=== PATIENT | male | born 1945 | race Caucasian/White ===

== ENCOUNTER → 2017-12-31 08:38 | Outpatient (CLI) | payer MEDICARE, OTHER, SELFPAY ==
[2017-12-31 09:47] LABS: Anion Gap 4.9 mmol/L (3-11); BUN 15 mg/dL (7-18); CO2 27.1 mmol/L (21.0-32.0); CREATININE 0.83 mg/dL (0.70-1.30); Calcium 8.8 mg/dL (8.5-10.1); Chloride 106 mmol/L (98-107); Glucose 95 mg/dL (70-100); Potassium 4.4 mmol/L (3.5-5.1); Sodium 138 mmol/L (136-145)
== END ==
PROVIDERS: PCP Family Medicine; Visit Provider Family Medicine
DX: E55.9 Vitamin D deficiency, unspecified (principal); I10 Essential (primary) hypertension
CPT/HCPCS: 36415; 80048; 82306

== ENCOUNTER 2018-07-09 09:32 | Outpatient (CLI) | payer MEDICARE, OTHER, SELFPAY ==
--- NOTE | 2018-07-09 09:28 | DI.RAD_ITS ---
SYMPTOMS/DIAGNOSIS: F/U LT HAND PAIN LEFT HAND: There are no prior comparison exams. There is no evidence of fracture or dislocation. Degenerative changes are seen in the interphalangeal joints of the fingers as well as at the radial carpal joint. No bony erosions are seen. The bones appear normally mineralized. IMPRESSION: Degenerative changes greatest of the interphalangeal joints of the fingers.
== END 2018-07-09 09:52 ==
PROVIDERS: PCP Family Medicine; Referring Provider Family Medicine; Visit Provider Orthopaedic Surgery
DX: M79.642 Pain in left hand (principal); M25.732 Osteophyte, left wrist
CPT/HCPCS: 99211; 99213; 73130

== ENCOUNTER → 2018-09-06 10:29 | Outpatient (BNVA) | payer MEDICARE, OTHER, SELFPAY | PROVIDERS: PCP Family Medicine; Referring Provider Family Medicine; Visit Provider Physical Therapy Assistant | DX: Z01.818 Encounter for other preprocedural examination (principal); I10 Essential (primary) hypertension; M25.742 Osteophyte, left hand; Z79.82 Long term (current) use of aspirin ==

== ENCOUNTER 2018-09-11 09:00 | Day surgery (SDC) | payer MEDICARE, OTHER, SELFPAY ==
[2018-09-11 09:15] VITALS: BP 127/69; PULSE 58; RESP 16; TEMP 36.4; O2SAT 96
[2018-09-11] MEDS: Lactated Ringers 1,000 ML 80 ML IV (09:41)
[2018-09-11] MEDS: ceFAZolin 2 GM/50 ML BAG IVPB (11:20)
--- NOTE | 2018-09-11 11:45 | BONE_PTH ---
PATIENT: Kristina Figueroa LOC: [facility] U#:[id number] AGE/SX: 72/M ROOM: RE09/11/[address]: Burak Quinones MD : [id number] BED: DIS: 09/11/2018 SPEC #: [id number] RECD: 09/11/18 17:19 STATUS: GAMAL REQ #: [id number] DANA: 09/11/18 11:[address]: Burak Quinones DEPT: Surgical Specimen RECD BY: Shanta Bhatt ENTERED: 09/11/18 17:20 SP TYPE: Bone OTHR DR: Sammy Almonte MD Tissues: 1 - BONE BX/CURRETTE NOT PATH FRACTURE Procedures: GROSS AND MICRO LEVEL 4 DECALCIFICATION Comments: [id number]
--- NOTE | 2018-09-11 12:01 | DI.RAD_ITS ---
SYMPTOMS/DIAGNOSIS: METACARPAL BOSS, LEFT LEFT WRIST IN THE OR: Fluoroscopy Time: 0.13 sec, 2 images, 0.1386 mGy Fluorosopcy was utilized by Dr. Quinones in the Operating Room. Please refer to the procedure report for complete details.
[2018-09-11] MEDS: Bupivacaine 0.5% Pres-Free 30 ML VIAL (12:08)
[2018-09-11 12:18] VITALS: BP 124/75; PULSE 57; RESP 12; TEMP 36.6; O2SAT 94
[2018-09-11 12:23] VITALS: BP 142/89; PULSE 56; RESP 15; TEMP 36.7; O2SAT 98
[2018-09-11 12:28] VITALS: BP 147/82; PULSE 55; RESP 16; TEMP 36.7; O2SAT 98
--- NOTE | 2018-09-11 12:32 | W.PM.DSUDISC ---
Discharge Plan Disposition Patient Disposition: HOME Condition: Improving Discharge Details Attending Provider: Burak Quinones Primary Care Provider: Sammy Almonte Home Meds and New Rx's Prescriptions: No Action magnesium gluconate 27 mg magnesium (500 mg) tablet 27 mg PO BID RF: 0 sulfamethoxazole-trimethoprim [Bactrim DS] 800-160 mg tablet 1 tab PO Q12H Qty: 30 RF: 0 oxygen-air delivery systems device .ROUTE .MEDSUPPLY Qty: 1 RF: 0 aspirin [Aspirin Low-Strength] 81 MG tablet,chewable 81 mg PO DAILY RF: 0 multivitamin 1 EACH capsule 1 ea PO DAILY RF: 0 Probiotic 1 EACH capsule 1 cap PO DAILY PRN RF: 0 maría extract 250 MG capsule 250 mg PO DAILY RF: 0 fluticasone propionate 16 GM spray,suspension 2 spr NS DAILY Qty: 1 RF: 2 tamsulosin 0.4 MG capsule 1 - 2 cap PO HS Qty: 180 RF: 3 cholecalciferol (vitamin D3) [Vitamin D3] 2,000 UNIT capsule 2,000 unit PO BID RF: 0 lisinopril 20 MG tablet 0.5 tab PO DAILY Qty: 90 RF: 4 tadalafil [Cialis] 20 MG tablet 20 mg PO DAILY Qty: 16 RF: 4 acetaminophen [Mapap Extra Strength] 500 MG tablet 2 tab PO PRN RF: 0 ibuprofen 200 MG tablet 600 mg PO DAILY PRNRF: 0 Discharge Instructions Additional Instructions: Keep your left hand elevated above heart level as much as possible for the next 48 hours. You may use your fingers as comfort allow. You may loosen the wrist splint and/or underlying alistair bandage if they feel too tight. Expect some bloody drainage on the underlying gauze bandages. For showering tomorrow, use a plastic bag with a rubber band about the upper forearm to keep the bandages dry. On 09/13/18, you may remove all of your bandages and get your wound wet in the shower with soap and water. Gently pat the stitches dry and cover them with gauze or an extra-large bandaid. Only use your wrist splint for any discomfort. Do not do any heavy labor until the stitches are removed. Take you regular medications as before. Take tylenol, aleve or ibuprofen for milder pain. Tylenol may be taken at the same time as ibuprofen or at the same time as aleve as they are metabolized differently and are not cross toxic. Take norco (hydrocodone 5/325mg) 1-2 every 4-6 hours for more serious pain. [facility] regulations limit the amount of norco to 18 tablets. Follow-up with Dr. Quinones in 10-12 days for stitch removal. Stand Alone Forms: DSU Post op Instructions, Shanna Porras (DSU) Equipment/Supplies: Brace Activity:: Elevate Remove Dressings/Wound Care:: 48 hours Shower/Bathe:: 48 hours Diet:: As Tolerated Discharge Orders Discharge Orders: Discharge Order (Routine); Ordered 09/11/18 Ordered By: Burak Quinones
--- NOTE | 2018-09-11 12:49 | W.PM.DSUDISC ---
Discharge Plan Disposition Patient Disposition: HOME Condition: Improving Discharge Details Attending Provider: Burak Quinones Primary Care Provider: Sammy Almonte Home Meds and New Rx's Prescriptions: New hydrocodone-acetaminophen [Bighorn] 5-325 mg tablet 1 tab PO Q4H Qty: 18 RF: 0 No Action magnesium gluconate 27 mg magnesium (500 mg) tablet 27 mg PO BID RF: 0 sulfamethoxazole-trimethoprim [Bactrim DS] 800-160 mg tablet 1 tab PO Q12H Qty: 30 RF: 0 oxygen-air delivery systems device .ROUTE .MEDSUPPLY Qty: 1 RF: 0 aspirin [Aspirin Low-Strength] 81 MG tablet,chewable 81 mg PO DAILY RF: 0 multivitamin 1 EACH capsule 1 ea PO DAILY RF: 0 Probiotic 1 EACH capsule 1 cap PO DAILY PRN RF: 0 maría extract 250 MG capsule 250 mg PO DAILY RF: 0 fluticasone propionate 16 GM spray,suspension 2 spr NS DAILY Qty: 1 RF: 2 tamsulosin 0.4 MG capsule 1 - 2 cap PO HS Qty: 180 RF: 3 cholecalciferol (vitamin D3) [Vitamin D3] 2,000 UNIT capsule 2,000 unit PO BID RF: 0 lisinopril 20 MG tablet 0.5 tab PO DAILY Qty: 90 RF: 4 tadalafil [Cialis] 20 MG tablet 20 mg PO DAILY Qty: 16 RF: 4 acetaminophen [Mapap Extra Strength] 500 MG tablet 2 tab PO PRN RF: 0 ibuprofen 200 MG tablet 600 mg PO DAILY PRNRF: 0 Discharge Instructions Additional Instructions: Keep your left hand elevated above heart level as much as possible for the next 48 hours. You may use your fingers as comfort allow. You may loosen the wrist splint and/or underlying alistair bandage if they feel too tight. Expect some bloody drainage on the underlying gauze bandages. For showering tomorrow, use a plastic bag with a rubber band about the upper forearm to keep the bandages dry. On 09/13/18, you may remove all of your bandages and get your wound wet in the shower with soap and water. Gently pat the stitches dry and cover them with gauze or an extra-large bandaid. Only use your wrist splint for any discomfort. Do not do any heavy labor until the stitches are removed. Take you regular medications as before. Take tylenol, aleve or ibuprofen for milder pain. Tylenol may be taken at the same time as ibuprofen or at the same time as aleve as they are metabolized differently and are not cross toxic. Take norco (hydrocodone 5/325mg) 1-2 every 4-6 hours for more serious pain. [facility] regulations limit the amount of norco to 18 tablets. Follow-up with Dr. Quinones in 10-12 days for stitch removal. Stand Alone Forms: DSU Post op Instructions, Shanna Porras (DSU) Equipment/Supplies: Brace Activity:: Elevate Remove Dressings/Wound Care:: 48 hours Shower/Bathe:: 48 hours Diet:: As Tolerated Discharge Orders Discharge Orders: Discharge Order (Routine); Ordered 09/11/18 Ordered By: Burak Quinones Discharge Data Discharge Date/Time-TO BE ENTERED AT DEPARTURE: 09/11/18 14:00 Discharge Comment: DC'D HOME WITH , STABLE.
[2018-09-11 13:35] VITALS: BP 133/79; PULSE 59; RESP 16; TEMP 36; O2SAT 97
--- NOTE | 2018-09-11 14:14 | ROE_ITS ---
REPORT OF OPERATIVE PROCEDURE DATE OF PROCEDURE September 11, 2018 PREOPERATIVE DIAGNOSIS Painful metacarpal exostosis (metacarpal boss), middle finger left hand. POSTOPERATIVE DIAGNOSES Painful metacarpal exostosis (metacarpal boss), middle finger left hand with possible small associate d ganglion cyst. PROCEDURES Excision of metacarpal exostosis and biopsy of exostosis. SURGEON Burak Quinones M.D. [employer] Tech. ANESTHETIC General via LMA by Narendra Rae C.R.N.A. PREP ChloraPrep. INDICATIONS Mr. Figueroa has been bothered by painful exostosis over the dorsum of his nondominant left hand. It does not typically bother him while working, but when at rest or when sitting in one position, he gets rene n. He had a very prominent bone spur over the base of the middle finger metacarpal, which was quite t ilya. X-ray revealed what appeared to be an exostosis either associated with metacarpal carpal arthr itis or some other etiology. Because of discomfort, I recommended excision. I reviewed his radiographs with him. I saw him today in the Day Surgery holding area, and reviewed e planned procedure. He understood and wished to proceed. His left hand was marked with a surgical sk in marker. PROCEDURE DESCRIPTION The patient was taken to the Operating Suite; he underwent induction of general anesthesia via LMA. H e received 2 grams of Ancef a prophylactic antibiotic. A pneumatic tourniquet was applied to the left proximal brachium. The left upper extremity was prepped with ChloraPrep. Sterile drapes were applied . Timeout was instituted, verifying the patient's planned procedure, and his medical history. The lef t arm was then lifted above his head for 2 minutes to exsanguinate it and the tourniquet was inflated to 320 mmHg. A transverse incision was made over the metacarpal boss, which was easily visible and palpable. I marguerite cted to use the C-arm image intensifier to verify complete excision of the boss. After making the tra nsverse incision, the extensor tendon was retracted in a radial direction. The soft tissue overlying the boss were incised. There had been some cystic ganglion cyst-type fluid and synovial fluid, which lead me to decide to biopsy the soft tissues in addition to the bone. After the bone was exposed, a Mathew osteotome was used to resect them. This was further trimmed back u sing a small rongeur. A rasp was then used to file the base of the middle finger metacarpal fully. Th e mini C-arm was brought into position and lateral and oblique films show complete removal of the mas s. Final check showed the dorsal surface of the carpal metacarpal junction to be smooth. I used a sma ll amount of sterile bone wax to minimize postoperative hematoma. The tourniquet was deflated. Hemost asis was under control. Subcutaneous tissues were closed with #3-0 Vicryl. The skin was closed with t wo sutures of #4-0 Ethilon in a horizontal mattress fashion. Marcaine 0.5% without epinephrine was pl aced dorsally in the subcutaneous tissues for postoperative analgesia. The wound was dressed with Xer oform gauze, 4x4s, 3-inch confirming gauze bandage, a 3-inch Chase wrap and a commercial wrist immobili zer. The patient was taken to the Recovery Room in satisfactory condition tolerating the procedure we ll.
--- NOTE | 2018-09-17 07:00 | PDOC.DSDIS_ITS ---
Discharge Plan Disposition Patient Disposition: HOME Condition: Improving Discharge Details Attending Provider: Burak Quinones Primary Care Provider: Sammy Almonte Home Meds and New Rx's Prescriptions: New hydrocodone-acetaminophen [Orgas] 5-325 mg tablet 1 tab PO Q4H Qty: 18 RF: 0 No Action magnesium gluconate 27 mg magnesium (500 mg) tablet 27 mg PO BID RF: 0 sulfamethoxazole-trimethoprim [Bactrim DS] 800-160 mg tablet 1 tab PO Q12H Qty: 30 RF: 0 oxygen-air delivery systems device .ROUTE .MEDSUPPLY Qty: 1 RF: 0 aspirin [Aspirin Low-Strength] 81 MG tablet,chewable 81 mg PO DAILY RF: 0 multivitamin 1 EACH capsule 1 ea PO DAILY RF: 0 Probiotic 1 EACH capsule 1 cap PO DAILY PRN RF: 0 maría extract 250 MG capsule 250 mg PO DAILY RF: 0 fluticasone propionate 16 GM spray,suspension 2 spr NS DAILY Qty: 1 RF: 2 tamsulosin 0.4 MG capsule 1 - 2 cap PO HS Qty: 180 RF: 3 cholecalciferol (vitamin D3) [Vitamin D3] 2,000 UNIT capsule 2,000 unit PO BID RF: 0 lisinopril 20 MG tablet 0.5 tab PO DAILY Qty: 90 RF: 4 tadalafil [Cialis] 20 MG tablet 20 mg PO DAILY Qty: 16 RF: 4 acetaminophen [Mapap Extra Strength] 500 MG tablet 2 tab PO PRN RF: 0 ibuprofen 200 MG tablet 600 mg PO DAILY PRNRF: 0 Discharge Instructions Additional Instructions: Keep your left hand elevated above heart level as much as possible for the next 48 hours. You may use your fingers as comfort allow. You may loosen the wrist splint and/or underlying alistair bandage if they feel too tight. Expect some bloody drainage on the underlying gauze bandages. For showering tomorrow, use a plastic bag with a rubber band about the upper forearm to keep the bandages dry. On 09/13/18, you may remove all of your bandages and get your wound wet in the shower with soap and water. Gently pat the stitches dry and cover them wit h gauze or an extra-large bandaid. Only use your wrist splint for any discomfort. Do not do any heavy labor until the stitches are removed. Take you regular medications as before. Take tylenol, aleve or ibuprofen for milder pain. Tylenol may be taken at the same time as ibuprofen or at the same time as aleve as they are metabolized differently and are not cross toxic. Take norco (hydrocodone 5/325mg) 1-2 every 4-6 hours for more serious pain. [facility] regulations limit the amount of norco to 18 tablets. Follow-up with Dr. Quinones in 10-12 days for stitch removal. Stand Alone Forms: DSU Post op Instructions, Shanna Porras (DSU) Equipment/Supplies: Brace Activity:: Elevate Remove Dressings/Wound Care:: 48 hours Shower/Bathe:: 48 hours Diet:: As Tolerated Discharge Orders Discharge Orders: Discharge Order (Routine); Ordered 09/11/18 Ordered By: Burak Quinones Discharge Data Discharge Date/Time-TO BE ENTERED AT DEPARTURE: 09/11/18 14:00 Discharge Comment: DC'D HOME WITH , STABLE.
== END 2018-09-11 14:00 | disposition home or self-care (01) ==
PROVIDERS: PCP Family Medicine; Visit Provider Orthopaedic Surgery
PROC: (CPT 26230; principal; 2018-09-11 10:00)
DX: M89.9 Disorder of bone, unspecified (principal); I10 Essential (primary) hypertension; G47.33 Obstructive sleep apnea (adult) (pediatric); M79.642 Pain in left hand
CPT/HCPCS: 26230; 88305; 73100; 88304; 88311; J0690; J1885; J2405; J3010; L3908

== ENCOUNTER → 2018-09-24 11:40 | Outpatient (BNVA) | payer MEDICARE, OTHER, SELFPAY | PROVIDERS: PCP Family Medicine; Referring Provider Family Medicine; Visit Provider Orthopaedic Surgery | DX: Z47.89 Encounter for other orthopedic aftercare (principal); M25.749 Osteophyte, unspecified hand ==

== ENCOUNTER 2019-01-10 07:56 | Outpatient (CLI) | payer MEDICARE, OTHER, SELFPAY ==
[2019-01-10 10:50] LABS: HCT 44.9 % (40.0-50.0); HGB 15.2 g/dL (13.5-17.5); Mean Corp. HGB Concentration 33.9 g/dL (32.0-36.0); Mean Corpuscular Hemoglobin 30.9 pg (27.0-33.0); Mean Corpuscular Volume 91.3 fL (80-95); Platelet Count 232 x1000/uL (130-400); RBC 4.92 m/cumm (4.50-6.00); RBC Distribution Width 13.2 % (11.8-14.1); White Blood Cell Count 5.26 k/cumm (4.4-10.8)
[2019-01-10 11:04] LABS: Anion Gap 8.4 mmol/L (3-11); BUN 12 mg/dL (7-18); CO2 27.6 mmol/L (21.0-32.0); CREATININE 0.94 mg/dL (0.70-1.30); Chloride 106 mmol/L (98-107); Glucose 97 mg/dL (70-100); Potassium 4.7 mmol/L (3.5-5.1); Sodium 142 mmol/L (136-145)
== END 2019-01-10 08:16 ==
PROVIDERS: PCP Family Medicine; Visit Provider Family Medicine
DX: I10 Essential (primary) hypertension (principal)
CPT/HCPCS: 36415; 80048; 85027

== ENCOUNTER 2019-04-23 11:11 | Outpatient (CLI) | payer MEDICARE, OTHER, SELFPAY ==
--- NOTE | 2019-04-23 13:07 | DI.RAD_ITS ---
EXAM: XR CHEST 2V PA LATERAL INDICATION: cough/rales right, sinus pressure, J34.89. COMPARISON: CHEST ONE VIEW IN RAD DEPT from 06/10/2014 TECHNIQUE: 2D digital imaging was performed. FINDINGS: The heart size is normal. The aorta is tortuous. There is minimal linear scarring at the left lung base. No infiltrate, effusion or pulmonary edema is seen. IMPRESSION: No acute abnormality.
== END 2019-04-23 11:31 ==
PROVIDERS: PCP Family Medicine; Visit Provider Internal Medicine
DX: R09.89 Other specified symptoms and signs involving the circulatory and respiratory systems (principal); R05 Cough; J34.89 Other specified disorders of nose and nasal sinuses
CPT/HCPCS: 71046

== ENCOUNTER 2019-06-12 11:45 | Outpatient (CLI) | payer MEDICARE, OTHER, SELFPAY ==
[2019-06-12 13:12] LABS: Absolute Basophil Count 0.02 k/cumm (0.0-0.2); Absolute Eosinophil Count 0.07 k/cumm (0.0-0.7); Absolute Lymphocyte Count 1.47 k/cumm (1.2-3.4); Absolute Monocyte Count 0.48 k/cumm (0.11-0.7); Absolute Neutrophil Count 2.61 k/cumm (1.2-6.7); Basophils % 0.4; Eosinophils % 1.5; HCT 44.5 % (40.0-50.0); Lymphocytes % 31.6; Mean Corp. HGB Concentration 33.7 g/dL (32.0-36.0); Mean Corpuscular Hemoglobin 30.6 pg (27.0-33.0); Mean Corpuscular Volume 90.8 fL (80-95); Mean Platelet Volume 11.1 fL (8.0-11.0); Monocytes % 10.3; Neutrophils % 56.2; Platelet Count 236 x1000/uL (130-400); RBC Distribution Width 13.1 % (11.8-14.1); White Blood Cell Count 4.65 k/cumm (4.4-10.8)
[2019-06-12 13:45] LABS: ALT 35 U/L (16-63); AST 18 U/L (15-37); Alkaline Phosphatase 59 U/L (46-116); Anion Gap 9.6 mmol/L (3-11); BUN 12 mg/dL (7-18); Bilirubin, Total 0.6 mg/dL (0.2-1.0); CO2 28.4 mmol/L (21.0-32.0); CREATININE 0.78 mg/dL (0.70-1.30); Calcium 8.9 mg/dL (8.5-10.1); Chloride 105 mmol/L (98-107); Glucose 92 mg/dL (74-106); Potassium 4.3 mmol/L (3.5-5.1); Sodium 143 mmol/L (136-145)
== END 2019-06-12 12:05 ==
PROVIDERS: PCP Family Medicine
DX: R50.9 Fever, unspecified (principal); R10.2 Pelvic and perineal pain
CPT/HCPCS: 36415; 80053; 85025

== ENCOUNTER 2019-06-13 02:04 | Outpatient (CLI) | payer MEDICARE, OTHER, SELFPAY ==
--- NOTE | 2019-06-13 13:03 | DI.US_ITS ---
EXAM: US RENAL CLINICAL HISTORY: RECURRENT PELVIC PAIN AND PRESSURE, NEGATIVE R10.2 PELVIC PAIN,, H/O URINARY CALCU LI, R50.9 FEVER TECHNIQUE: Renal ultrasound was performed according to the usual protocol. COMPARISON: RENAL ULTRASOUND from 05/05/2013 FINDINGS: There is no evidence of hydronephrosis or nephrolithiasis. There is a 33 millimeter in greatest diam eter right renal pelvic cyst. Urinary bladder shows pre and postvoid volume measurements 98 cc and 38 cc, respectively. Ureteral j ets noted bilaterally. Prostatic volume is estimated at 35 cc. IMPRESSION: Residual urinary bladder volume 38 cc. No other significant abnormality seen.
== END 2019-06-13 02:24 ==
PROVIDERS: PCP Family Medicine
DX: R10.2 Pelvic and perineal pain (principal); R50.9 Fever, unspecified; R39.198 Other difficulties with micturition
CPT/HCPCS: 76770

== ENCOUNTER 2020-01-16 00:09 | Outpatient (CLI) | payer MEDICARE, OTHER, SELFPAY ==
[2020-01-16 12:56] LABS: Anion Gap 7.5 mmol/L (3-11); BUN 25 mg/dL (7-18); CO2 27.5 mmol/L (21.0-32.0); CREATININE 0.86 mg/dL (0.70-1.30); Calcium 9.2 mg/dL (8.5-10.1); Chloride 105 mmol/L (98-107); Glucose 88 mg/dL (74-106); Potassium 4.4 mmol/L (3.5-5.1); Sodium 140 mmol/L (136-145)
== END 2020-01-16 00:29 ==
PROVIDERS: PCP Nurse Practitioner; Visit Provider Family Medicine
DX: I10 Essential (primary) hypertension (principal)
CPT/HCPCS: 36415; 80048

== ENCOUNTER 2020-04-07 03:28 | Outpatient (CLI) | payer MEDICARE, OTHER, SELFPAY ==
[2020-04-07 12:19] LABS: Abs Immature Grans 0.11 10^3/uL (0.0-0.06); Absolute Monocyte Count 0.75 10^3/uL (0.1-0.8); Basophils % 0.3; Eosinophils % 0.8; HCT 37.8 % (40.0-50.0); HGB 12.2 g/dL (13.5-17.5); Immature Grans % 0.7; Lymphocytes % 7.8; MCH 30.2 pg (27.0-33.0); MCHC 32.3 % (32.0-36.0); MCV 93.6 fL (80-95); MPV 10.5 fL (8.0-11.0); Monocytes % 4.7; Neutrophils % 85.7; Nucleated RBC 0 %; Platelet Count 348 10^3/uL (130-400); RBC 4.04 10^6/uL (4.36-5.78); RDW 12.6 % (11.8-14.1); RDW-SD 43.7 fL
[2020-04-07 12:25] LABS: Absolute Basophil Count 0.05 10^3/uL (0.0-0.2); Absolute Eosinophil Count 0.13 10^3/uL (0.0-0.7); Absolute Lymphocyte Count 1.25 10^3/uL (1.2-3.4); Absolute Neutrophil Count 13.71 10^3/uL (1.2-6.7); Anion Gap 8.2 mmol/L (3-11); BUN 15 mg/dL (7-18); CO2 25.8 mmol/L (21.0-32.0); Calcium 8.5 mg/dL (8.5-10.1); Chloride 104 mmol/L (98-107); Glucose 103 mg/dL (74-106); Potassium 4.5 mmol/L (3.5-5.1); Sodium 138 mmol/L (136-145)
[2020-04-08 10:26] LABS: Lyme Ab w Rflx to Lyme Confirm Positive (Negative)
[2020-04-09 19:29] LABS: Anaplasma phagocytophilum Negative (Negative); B. miyamotoi PCR Negative (Negative); Babesia divergens/MO-1 Negative (Negative); Babesia duncani Negative (Negative); Babesia microti Negative (Negative); Ehrlichia chaffeensis Negative (Negative); Ehrlichia ewingii/canis Negative (Negative); Ehrlichia muris eauclairensis Negative (Negative)
[2020-04-14 15:02] LABS: IgG Band(s) p45; IgG Immunoblot Negative (Negative); IgM Band(s) p41; IgM Immunoblot Positive (Negative)
== END 2020-04-07 03:48 ==
PROVIDERS: PCP Nurse Practitioner; Visit Provider Nurse Practitioner
DX: R53.82 Chronic fatigue, unspecified (principal); R21 Rash and other nonspecific skin eruption; R50.9 Fever, unspecified
CPT/HCPCS: 36415; 80048; 86617; 87798; 85025; 86618

== ENCOUNTER 2020-05-06 02:48 | Outpatient (CLI) | payer MEDICARE, OTHER, SELFPAY ==
[2020-05-11 12:49] LABS: 1,25-Dihydroxyvitamin D 76 pg/mL (18-64)
== END 2020-05-06 03:08 ==
PROVIDERS: PCP Nurse Practitioner; Visit Provider Nurse Practitioner
DX: E55.9 Vitamin D deficiency, unspecified (principal)
CPT/HCPCS: 36415; 82652

== ENCOUNTER → 2020-07-06 10:49 | Outpatient (BNVA) | payer MEDICARE, OTHER, SELFPAY | PROVIDERS: PCP Nurse Practitioner; Referring Provider Nurse Practitioner; Visit Provider Psychiatry & Neurology Neurology | DX: R29.2 Abnormal reflex (principal); G25.2 Other specified forms of tremor; R41.3 Other amnesia; I10 Essential (primary) hypertension | CPT/HCPCS: 99215; G2212 ==

== ENCOUNTER 2020-07-19 00:54 | Outpatient (CLI) | payer MEDICARE, OTHER, SELFPAY ==
--- NOTE | 2020-07-19 06:45 | DI.MRI_ITS ---
EXAM: MR CERVICAL SPINE WO CLINICAL HISTORY: Bilateral babinski reflexes,r29.2 TECHNIQUE: Multiplanar multisequence MRI of the cervical spine was performed without intravenous con trast. COMPARISON: There are no plain films of the cervical spine available at the time of this MRI interpr etation FINDINGS: CERVICOMEDULLARY JUNCTION: Intact with no evidence of cerebellar tonsillar ectopia. No obvious abnor mality of the odontoid process. No evidence of Chiari 1 malformation. CERVICAL SPINAL CORD: Mild increased signal at C4-5 level where there is severe spinal canal stenosis (see below) OSSEOUS:There are no cervical fractures evident. No significant osseous lesions in the cervical vert ebrae. INDIVIDUAL LEVELS: C2-3: There is a central subligamentous disc bulge. This effaces the thecal sac but not the actual s osmel cord. There is no abnormal signal in the cord at this level. Central canal dimensions are low er normal. No foraminal stenosis seen. Mild degenerative changes in the facet joints. C3-4: At this level there is lateral right disc-osteophyte complex which results in some impingement on right side of cervical cord at this level and some right-sided foraminal narrowing. No significan t left-sided findings at this level.Mild facet degenerative changes. C4-5: Advanced disc space narrowing. Diffuse annular bulging and posterior bony ridging result in sev ere central spinal canal stenosis at this level. The AP diameter of canal at this level is 4-5 bessy meters. There is also significant narrowing of the exiting neural foramina bilaterally due to the di sc height loss and degenerative facet joint changes. C5-6: Advanced disc space narrowing. There is a posterolateral right disc protrusion which extends p osteriorly 4-5 millimeters and is approximately 2 centimeters wide. This results in significant impi ngement of the cord at this level with severe spinal canal stenosis also evident at this level. Mode rate narrowing of both exiting neural foramen are also noted. C6-7: Moderate decreased disc height. Posterior slightly right of center disc protrusion which exten ds posteriorly 3 millimeters and is approximately 8 millimeters wide. Contacts the cord but central canal dimensions are lower normal. There is moderate bilateral foraminal stenosis this level. No ob vious signal abnormality in the cord seen at this level. Moderate facet arthropathy. C7-T1: No disc herniation nor central canal stenosis. No facet arthropathy.No foraminal stenosis. IMPRESSION: 1. Multilevel chronic degenerative disc disease as described above. 2. There is severe spinal canal stenosis at both C4-5 and C5-6 levels. Also multilevel foraminal nilton nosis. 3. Multilevel facet arthropathy. DATA REPOSITORY:
== END 2020-07-19 01:14 ==
PROVIDERS: PCP Nurse Practitioner; Visit Provider Psychiatry & Neurology Neurology
DX: M48.02 Spinal stenosis, cervical region; M47.812 Spondylosis without myelopathy or radiculopathy, cervical region; R29.2 Abnormal reflex
CPT/HCPCS: 72141

== ENCOUNTER → 2020-08-24 09:27 | Outpatient (BNVA) | payer MEDICARE, OTHER, SELFPAY | PROVIDERS: PCP Nurse Practitioner; Referring Provider Nurse Practitioner; Visit Provider Psychiatry & Neurology Neurology | DX: G25.2 Other specified forms of tremor (principal); R29.2 Abnormal reflex; R41.3 Other amnesia; G95.9 Disease of spinal cord, unspecified; I10 Essential (primary) hypertension | CPT/HCPCS: 99214 ==

== ENCOUNTER → 2020-11-15 09:05 | Outpatient (BNVA) | payer MEDICARE, OTHER, SELFPAY | PROVIDERS: PCP Nurse Practitioner; Referring Provider Nurse Practitioner; Visit Provider Psychiatry & Neurology Neurology | DX: G25.2 Other specified forms of tremor (principal); R29.2 Abnormal reflex; R41.3 Other amnesia; G95.9 Disease of spinal cord, unspecified; I10 Essential (primary) hypertension | CPT/HCPCS: 99214 ==

== ENCOUNTER 2021-01-21 01:13 | Outpatient (CLI) | payer MEDICARE, OTHER, SELFPAY ==
[2021-01-21 12:38] LABS: CREATININE 0.8 mg/dL (0.70-1.30); Potassium 4.6 mmol/L (3.5-5.1)
== END 2021-01-21 01:14 | disposition home or self-care (01) ==
LOC: LOS 01:13
PROVIDERS: PCP Nurse Practitioner; Visit Provider Nurse Practitioner
DX: I10 Essential (primary) hypertension (principal); E78.01 Familial hypercholesterolemia
CPT/HCPCS: 36415; 82565; 84132

== ENCOUNTER → 2021-05-16 09:16 | Outpatient (BNVA) | payer MEDICARE, OTHER, SELFPAY | PROVIDERS: PCP Nurse Practitioner; Visit Provider Psychiatry & Neurology Neurology | DX: G25.2 Other specified forms of tremor (principal); R29.2 Abnormal reflex; R41.3 Other amnesia; G95.9 Disease of spinal cord, unspecified; I10 Essential (primary) hypertension | CPT/HCPCS: 99214 ==

== ENCOUNTER 2021-07-20 21:34 | Emergency (ER) | payer MEDICARE, OTHER, SELFPAY ==
[2021-07-20 21:39] VITALS: BP 189/97; PULSE 82; RESP 18; TEMP 36.5; O2SAT 97
[2021-07-20 21:44] VITALS: RESP 18
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
[2021-07-20 22:12] VITALS: BP 189/97; PULSE 82; RESP 18; TEMP 36.5; O2SAT 97
== END 2021-07-20 22:14 | disposition home or self-care (01) ==
PROVIDERS: Emergency Provider Emergency Medicine; PCP Nurse Practitioner
DX: T75.89XA Other specified effects of external causes, initial encounter (principal); X02.0XXA Exposure to flames in controlled fire in building or structure, initial encounter; Z99.89 Dependence on other enabling machines and devices
CPT/HCPCS: 99281; 99282

== ENCOUNTER → 2021-11-30 09:19 | Outpatient (BNVA) | payer MEDICARE, OTHER, SELFPAY | PROVIDERS: PCP Nurse Practitioner; Referring Provider Nurse Practitioner; Visit Provider Psychiatry & Neurology Neurology | DX: G25.2 Other specified forms of tremor (principal); R29.2 Abnormal reflex; R41.3 Other amnesia; G95.9 Disease of spinal cord, unspecified | CPT/HCPCS: 99214 ==

== ENCOUNTER 2022-04-10 04:22 | Outpatient (CLI) | payer MEDICARE, OTHER, SELFPAY ==
[2022-04-10 12:41] LABS: Abs Immature Grans 0.01 10^3/uL (0.0-0.06); Absolute Basophil Count 0.04 10^3/uL (0.0-0.2); Absolute Eosinophil Count 0.19 10^3/uL (0.0-0.7); Absolute Lymphocyte Count 1.95 10^3/uL (1.2-3.4); Absolute Monocyte Count 0.62 10^3/uL (0.1-0.8); Absolute Neutrophil Count 3.21 10^3/uL (1.2-6.7); Basophils % 0.7; Eosinophils % 3.2; Immature Grans % 0.2; Lymphocytes % 32.4; MCH 30.4 pg (27.0-33.0); MCHC 33.3 % (32.0-36.0); MCV 91 fL (80-95); MPV 11.2 fL (8.0-11.0); Monocytes % 10.3; Neutrophils % 53.2; Platelet Count 207 10^3/uL (130-400); RBC 4.94 10^6/uL (4.36-5.78); RDW 13.3 % (11.8-14.1); RDW-SD 44.7 fL; WBC 6.02 10^3/uL (4.4-10.8)
[2022-04-10 12:51] LABS: ALT 37 U/L (16-63); AST 20 U/L (15-37); Albumin 4.1 g/dL (3.4-5.0); Alkaline Phosphatase 51 U/L (46-116); Anion Gap 7.7 mmol/L (3-11); BUN 16 mg/dL (7-18); Bilirubin, Total 0.6 mg/dL (0.2-1.0); CO2 28.3 mmol/L (21.0-32.0); CREATININE 0.9 mg/dL (0.70-1.30); Calcium 9.2 mg/dL (8.5-10.1); Calculated LDL 126 mg/dL (<100); Chloride 105 mmol/L (98-107); Cholesterol 204 mg/dL (<200); Estimated GFR 89.07 (mL/min/1.73m2); Glucose 102 mg/dL (74-106); HDL Cholesterol 65 mg/dL (40-60); Potassium 4.2 mmol/L (3.5-5.1); Sodium 141 mmol/L (136-145); TSH (W/Ref FT4) 1.45 uIU/mL (0.36-3.74); Total Protein 7.4 g/dL (6.4-8.2); Triglyceride 68 mg/dL (<150)
== END 2022-04-10 04:23 | disposition home or self-care (01) ==
LOC: LOS 04:22
PROVIDERS: PCP Nurse Practitioner Family; Visit Provider Nurse Practitioner Family
DX: E78.5 Hyperlipidemia, unspecified (principal); F32.9 Major depressive disorder, single episode, unspecified; F41.9 Anxiety disorder, unspecified; G25.81 Restless legs syndrome; I10 Essential (primary) hypertension; I83.93 Asymptomatic varicose veins of bilateral lower extremities; L84 Corns and callosities; N13.8 Other obstructive and reflux uropathy; N40.1 Benign prostatic hyperplasia with lower urinary tract symptoms; R41.3 Other amnesia; E78.01 Familial hypercholesterolemia; Z12.5 Encounter for screening for malignant neoplasm of prostate
CPT/HCPCS: 36415; 80053; 80061; 84153; 84443; 85025

== ENCOUNTER 2022-05-12 02:26 | Outpatient (CLI) | payer MEDICARE, SELFPAY | END 2022-05-12 02:27 | disposition home or self-care (01) | LOC: LOS 02:26 | PROVIDERS: PCP Nurse Practitioner Family; Visit Provider Nurse Practitioner Family | DX: R97.20 Elevated prostate specific antigen [PSA] (principal) | CPT/HCPCS: 36415; 84153 ==

== ENCOUNTER → 2022-05-29 07:58 | Outpatient (BNVA) | payer MEDICARE, SELFPAY | PROVIDERS: PCP Nurse Practitioner Family; Referring Provider Nurse Practitioner Family; Visit Provider Urology | DX: R97.20 Elevated prostate specific antigen [PSA] (principal); N40.1 Benign prostatic hyperplasia with lower urinary tract symptoms; N13.8 Other obstructive and reflux uropathy | CPT/HCPCS: 51798; 81003; 99214 ==

== ENCOUNTER 2022-11-28 15:47 | Outpatient (REF) | payer MEDICARE, SELFPAY | END 2022-11-28 15:48 | disposition home or self-care (01) | LOC: LBN 15:47 | PROVIDERS: PCP Nurse Practitioner Family; Visit Provider Physician Assistant | DX: N39.0 Urinary tract infection, site not specified (principal) | CPT/HCPCS: 87086 ==

== ENCOUNTER 2022-12-11 02:49 | Outpatient (CLI) | payer MEDICARE, SELFPAY ==
[2022-12-11 22:46] LABS: PSA, Diagnostic 8.7 ng/mL (<=6.5)
== END 2022-12-11 02:50 | disposition home or self-care (01) ==
LOC: LOS 02:49
PROVIDERS: PCP Nurse Practitioner Family; Visit Provider Urology
DX: R97.20 Elevated prostate specific antigen [PSA] (principal)
CPT/HCPCS: 36415; 84153

== ENCOUNTER → 2022-12-15 13:57 | Outpatient (BNVA) | payer MEDICARE, SELFPAY | PROVIDERS: PCP Nurse Practitioner Family; Referring Provider Nurse Practitioner Family; Visit Provider Urology | DX: N40.1 Benign prostatic hyperplasia with lower urinary tract symptoms (principal); N13.8 Other obstructive and reflux uropathy; I10 Essential (primary) hypertension | CPT/HCPCS: 99214 ==

== ENCOUNTER 2023-02-02 08:04 | Day surgery (SDC) | payer MEDICARE, SELFPAY ==
[2023-02-02 08:40] VITALS: BP 162/88; PULSE 57; RESP 16; TEMP 36.6; O2SAT 98
[2023-02-02] MEDS: Tropicam./Phenyleph. (1/2.5%) 5 ML BTL OS ×3 (08:48→09:00)
--- NOTE | 2023-02-02 08:57 | W.ANESPRE ---
General Info Date of Service Date Performed: 02/02/23 Height: 6 ft 1 in Weight: 100.2 kg Body Mass Index (BMI): 29.1 Surgical Procedure: Operation Date: 02/02/23 09:55 Proposed Procedure Side Surgeon p Cataract Extraction with IOL Implant Left Nile Bella MD Meds Allergies and Home Medications Allergies Allergy/AdvReac Type Severity Reaction Status Date / Time bupropion AdvReac Intermediate INSOMNIA Verified 02/02/23 08:35 ciprofloxacin HCl AdvReac Intermediate Verified 02/02/23 08:35 [From Cipro] amphetamine AdvReac Unknown Verified 02/02/23 08:35 dextroamphetamine AdvReac Unknown Verified 02/02/23 08:35 Home Medication Medication Instructions Recorded Lactobacillus acidophilus 10 1 cap PO DAILY PRN 05/01/13 billion cell capsule (Probiotic) acetaminophen 500 mg tablet (Mapap 2 tab PO PRN 02/13/14 Extra Strength) ibuprofen 200 mg tablet 600 mg PO DAILY PRN 08/13/17 magnesium gluconate 27 mg 27 mg PO BID 08/28/18 magnesium (500 mg) tablet oxygen-air delivery systems ##1 01/06/20 ascorbate calcium (vitamin C) 500 500 mg PO DAILY PRN 08/24/20 mg tablet maría (Zingiber officinalis) 250 250 mg PO DAILY PRN 11/15/20 mg capsule (maría extract) cetirizine 10 mg capsule (All Day 10 mg PO DAILY PRN 02/08/21 Allergy (cetirizine)) fluticasone propionate 50 2 spray intranasal DAILY PRN #1 inh 11/30/21 mcg/actuation nasal spray,suspension clotrimazole 1 % topical cream 1 applic topical BID #45 grams 04/06/22 tamsulosin 0.4 mg capsule 0.4 - 0.8 mg PO HS #180 tab-caps 04/06/22 sennosides 8.6 mg capsule (senna) 17.2 mg PO DAILY PRN constipation 06/26/22 #90 caps lisinopril 10 mg tablet 10 mg PO BID #180 tabs 07/13/22 ciclopirox 8 % topical solution 1 applic topical DAILY 3 months 12/06/22 #6.6 mL ketoconazole 2 % topical cream 1 applic topical DAILY 3 months 12/06/22 #60 grams tadalafil 5 mg tablet (Cialis) 5 mg PO DAILY urination #90 tabs 12/15/22 Current Visit Medications: Current Medications Generic Name Dose Route Start Last Admin Trade Name Go PRN Reason Stop Dose Admin Acetaminophen 1,000 mg 02/02/23 06:00 Acetaminophen 500 Mg Tab PO 03/04/23 05:59 Q4H PRN PRN Balanced Salt Solution 500 ml 02/02/23 06:00 Balanced Salt Soln.-Plus 500 Ml Bag OP 03/04/23 05:59 DIRECTED SHARRON Miscellaneous Medication 0 ml 02/02/23 06:00 Prednisolone 1%, Moxifloxacin 0.5%, Nepafenac 0.1% 5ml Btl OS 03/04/23 05:59 DIRECTED SHARRON Miscellaneous Medication 0 ml 02/02/23 06:00 02/02/23 08:55 Tropicam./Phenyleph. (1/2.5%) 5 Ml Btl OS 03/04/23 05:59 1 drp DIRECTED SHARRON Administration Tetracaine HCl 0 ml 02/02/23 06:00 Tetracaine 0.5% 4 Ml Btl OS 03/04/23 05:59 DIRECTED SHARRON PFSH Active Problems Active Problems: Problem Status Onset Code Cortical age-related cataract, left eye H25.012 Nuclear age-related cataract, left eye H25.12 Neuropathy G62.9 Toenail fungus B35.1 Callus L84 Hammertoe of left foot M20.42 Pain in toe M79.676 Elevated PSA, less than 10 ng/ml R97.20 Corns and callosities L84 Nail dystrophy L60.3 Allergies T78.40XA Trigger finger, left M65.30 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 N40.1, N13.8 Hearing loss H91.90 Low back pain M54.5 Varicose veins of both lower extremities I83.93 Restless legs syndrome G25.81 Erectile dysfunction N52.9 Hypertension I10 Hyperlipidemia E78.5 Depression F32.9 Anxiety F41.9 Memory loss R41.3 Intention tremor G25.2 Sensorineural hearing loss, bilateral 02/22/15 H90.3 Onychomycosis B35.1 Obstructive sleep apnea syndrome G47.33 Medical History Medical History Aftercare for healing traumatic fracture of upper leg (06/16/14) Anemia following surgery (06/16/14) Chest pain (04/05/04) History of reduction of closed fracture Hx of renal calculi Lyme borreliosis treated 2020 SHANIQUE on CPAP Rales Subtrochanteric fracture of femur (06/16/14) a. on the left Surgical History Surgical History Colonoscopy - MAC 09/06/10 FRACTURE 06/2014-LEFT FEMUR H/O surgical procedure a. bilateral inguinal hernia repair b. umbilical hernia repair c. bilateral carpal tunnel release d. trigger thumb surgery e. s/p subtrochanteric fx repair with Gamma nail 06/11/14 Open Carpal Tunnel release 03/19;05/20 Repair of inguinal hernia 1989-RIGHT 2006 LEFT 09/2011 ??? Status post carpal tunnel release Status post inguinal hernia repair Status post trigger finger release (02/13/14) Status post vasectomy Trigger Finger release 02/13/14; b/l Vasectomy Tobacco Smoking/Tobacco Use Status: Never Passive smoking exposure: Yes Second hand exposure: Yes Alcohol Alcohol Intake: never Substance Use Substance use: Never Substance use type: does not use Vital Signs and Lab Results Vital Signs Most Recent Vital Signs in EMR: Most Recent Vital Signs Temp Pulse Resp BP Pulse Ox 36.6 C 57 L 16 162/88 H 98 02/02/23 08:40 02/02/23 08:40 02/02/23 08:40 02/02/23 08:40 02/02/23 08:40 Lab Results Blood Type / Crossmatch: No Data to Display Complete Blood Count: No Data to Display Complete Metabolic Panel: No Data to Display Liver Function Panel: No Data to Display Coagulation Panel: No Data to Display Cardiac Panel: No Data to Display Arterial Blood Gas: No Data to Display Venous Blood Gas: No Data to Display Pancreas Panel: No Data to Display Thyroid Panel: No Data to Display Infectious Disease: No Data to Display Blood Cultures: No Data to Display Toxicology Panel: No Data to Display Anesthesia Assessment and Plan Anesthesia History Personal History: No History of Anesthesia Complications Family History: No Family History of Anesthesia Complications Exercise Tolerance Exercise Tolerance: Metabolic Equivalents>4 Cardiac & Pulmonary Exam Cardiac Exam: Normal S1/S2 Heart Sounds Pulmonary Exam: Clear Bilateral Breath Sounds Implantable Cardiac Device Does patient have a Pacemaker or an ICD?: No Airway Exam Known Difficult Airway: No Mallampati Class: 2 Mouth Opening: Normal (> 3cm) Thyromental Distance: Greater than 3 cm Neck Range of Motion: Limited ROM Neck Circumference: Normal Teeth Condition: Normal Dentition ASA Classification ASA Score: ASA 2 Emergency Case?: No NPO Status NPO Status: NPO Clears >2 hours, Solids >8 hours Anesthesia Plan Resuscitation Status: Full Code Anesthesia Technique: MAC Anesthesia Airway Planned: Natural Airway Monitors Used: Standard Monitors Preoperative Comments:: IV placement and sedation as backup, primary local
[2023-02-02 09:34] VITALS: BMI 29.1
[2023-02-02] MEDS: Tetracaine 0.5% 4 ML BTL OS (09:46)
[2023-02-02] MEDS: Balanced Salt Soln.-PLUS 500 ML BAG OP (09:46)
[2023-02-02] MEDS: Lidocaine 1% Pres-Free 5 ML VIAL (09:47)
[2023-02-02] MEDS: Duovisc Viscoelastic System EACH 1 EACH (09:47)
[2023-02-02] MEDS: Phenylephrine/Lidocaine (15/10) MG/ML 1 ML VIAL (09:48)
[2023-02-02] MEDS: Povidone-Iodine Ophth 30 ML BTL (09:49)
[2023-02-02 10:04] VITALS: BP 177/97; PULSE 54; RESP 18; TEMP 36.4; O2SAT 99
--- NOTE | 2023-02-02 10:04 | ROE_ITS ---
Date of service: 02/02/23 Time of Service: 10:05 Operative Note Operative Note DATE OF PROCEDURE: 02/02/23 PRE-OP DIAGNOSIS: Nuclear/cortical cataract, left eye POST-OP DIAGNOSIS: same PROCEDURE: Cataract extraction using phacoemulsification with intraocular lens implant, left eye SURGEON: Nile Bella ANESTHESIA TYPE: Local By Surgeon and MAC Refer to Anesthesia Record PATHOLOGY: none sent COMPLICATIONS: None Patient was transported to: same day Patient's condition: stable Implants: Jed and Jed Tecnis Eyhance [id number] Indications: Progressive decreased vision due to cataract, left eye Procedure Description: CATARACT SURGERY OPERATIVE REPORT PREOPERATIVE DIAGNOSIS: 1. Nuclear/cortical cataract, left eye POSTOPERATIVE DIAGNOSIS: Same OPERATION: 1. Cataract extraction using phacoemulsification with posterior chamber intraocular lens implant, left eye. IOL: IOL Sr Vice President/Model: Jed & Jed Tecnis Eyhance DIB00 IOL Power: + 19.5 diopters IOL Serial Number: [id number] Optic Diameter: 6.0 mm Haptic/Overall Diameter: 13.0 mm PHACO INFO: RigoToolWireon Vision System with OZil and Active Fluidics Cumulative Dispersed Energy (CDE): 6.68 seconds SURGEON: Nile Bella MD, VENKAT ANESTHESIA: Monitored [facility] (MAC), with local sub-tenon's anesthetic infiltration COMPLICATIONS: None SPECIMENS: None INDICATIONS FOR PROCEDURE: The patient is a 77-year-old gentleman with history of diminished visual acuity in his left eye secondary to the development of nuclear/cortical cataract. He is significantly symptomatic that he desires cataract surgery and attempt to improve and maximize his vision. The option of cataract surgery was offered to the patient and he wished to proceed. See office notes for detailed information. PROCEDURE: The correct surgical eye was identified and marked as the left eye and the pupil was dilated in the preoperative area using mydriatics and cycloplegics. The dilated pupil size was 6.0 mm. The patient elected to proceed without oral sedation. The patient was brought to the operating room where cardiopulmonary monitoring was instituted and surgical time-out was performed, confirming the correct operative eye and IOL power. Topical anesthesia was administered and ophthalmic povidone-iodine 5% was instilled into the conjunctival fornices. The efren-ocular area was prepped with Betadine 10% solution and draped in the usual sterile fashion for intraocular surgery, including an aperture drape. A Tegaderm transparent film dressing was cut in half and used to cover the lashes and lid margins. Care was taken to s equester the lashes and lid margins under the Tegaderm dressing. A lid speculum was placed between the lids of the operative eye and the Rigo LuxOR Revalia operating microscope was maneuvered into position. Mica scissors were then used to make a conjunctival buttonhole approximately 6mm posterior to the limbus in the inferonasal quadrant. Blunt dissection was carried out to expose bare sclera, and a blunt-tipped sub-tenon?s anesthesia cannula was introduced and passed posteriorly along the globe where non- preserved plain lidocaine was injected into posterior sub-Tenon?s space. A sideport knife was used to make a paracentesis port. Intraocular phenylephrine/lidocaine was injected into the anterior chamber.. The anterior chamber was filled with viscoelastic. A keratome knife was used to construct a 2-plane near-clear corneal tunnel extending 2.0mm into clear cornea. A flap was raised on the anterior capsule and capsulorhexis forceps were used to complete a continuous curvilinear capsulorhexis of 5.0 mm. Balanced salt solution was then used to perform cortical cleaving hydrodissection and nuclear hydrodelineation until the lens could be freely rotated within the capsular bag. The lens nucleus was then disassembled and removed within the capsular bag and iris plane using phacoemulsification. Residual cortical material was removed using the irrigation/aspiration badillo dpiece. The posterior capsule was carefully polished to remove as much residual lens epithelial cells as safely possible. The capsular bag was then inflated and the anterior chamber deepened with viscoelastic. The lens implant described above was inserted into the capsular bag using the Jed and Jed Simplicity pre-loaded injector. A Kuglen hook was used to dial the IOL into position. Residual viscoelastic was then removed first from posterior to the IOL, then from the anterior chamber using the I/A handpiece. The lens implant was noted to center nicely within the capsular bag. The incisions were stromally hydrated, and the anterior chamber was reformed using BSS. Then 0.5cc of moxifloxacin 1.0mg/ml were injected into the capsular bag and anterior chamber. The incisions were checked with a Weck spear and found to be secure. Several drops of ophthalmic povidone-iodine 5% were then applied to the eye followed by two drops of Imprimis combination prednisolone/moxifloxacin/nepafenac solution. The drapes were removed and a clear plastic protective eye shield was placed over the eye. The patient was then returned to Same Day Surgery in stable condition.
--- NOTE | 2023-02-02 10:04 | W.PM.DSUDISC ---
Date of service: 02/02/23 Time of Service: 10:04 Discharge Plan Disposition Patient Disposition: Home Discharge Details Attending Provider: Nile Bella Primary Care Provider: Clara Olivier Home Meds and New Rx's Prescriptions: No Action magnesium gluconate 27 mg magnesium (500 mg) tablet 27 mg PO BID All Day Allergy (cetirizine) 10 mg capsule 10 mg PO DAILY PRN tamsulosin 0.4 mg capsule 0.4 - 0.8 mg PO HS Qty: 180 4RF clotrimazole 1 % cream 1 applic topical BID Qty: 45 0RF Rx Instructions: Apply to affected areas twice a dayfor 2-4wks senna 8.6 mg capsule 17.2 mg PO DAILY PRN (Reason: constipation) Qty: 90 1RF (DME) oxygen-air delivery systems Device See Rx Instructions .ROUTE .MEDSUPPLY Qty: 1 Rx Instructions: CPAP @ HS As directed ascorbate calcium (vitamin C) 500 mg tablet 500 mg PO DAILY PRN tadalafil [Cialis] 5 mg tablet 5 mg PO DAILY Qty: 90 4RF Hold Instructions: Changed by Provider ciclopirox 8 % solution 1 applic topical DAILY 90 Days Qty: 6.6 0RF ketoconazole 2 % cream 1 applic topical DAILY 90 Days Qty: 60 0RF Probiotic 1 EACH capsule 1 cap PO DAILY PRN maría extract 250 mg capsule 250 mg PO DAILY PRN fluticasone propionate 50 mcg/actuation spray,suspension 2 spray intranasal DAILY PRNQty: 1 lisinopril 10 mg tablet 10 mg PO BID Qty: 180 3RF acetaminophen [Mapap Extra Strength] 500 MG tablet 2 tab PO PRN ibuprofen 200 MG tablet 600 mg PO DAILY PRN Discharge Instructions Stand Alone Forms: Post-op Topical Cataract, Shanna Palaciosey (DSU) Discharge Orders Discharge Orders: Discharge Order (Routine); Ordered 02/02/23 Ordered By: Nile Bella DS: Diagnosis Discharge Diagnosis (1) Cortical age-related cataract, left eye: Status: Resolved (2) Nuclear age-related cataract, left eye: Status: Resolved
--- NOTE | 2023-02-02 10:16 | W.ANESPOSTOP ---
Postoperative Evaluation Date, Time and Location Date Performed: 02/02/23 Time Performed: 10:08 Patient Location: Day Surgery Unit Vital Signs Most Recent Imported Vital Signs: Most Recent Vital Signs Temp Pulse Resp BP Pulse Ox 36.4 C L 54 L 18 177/97 H 99 02/02/23 10:04 02/02/23 10:04 02/02/23 10:04 02/02/23 10:04 02/02/23 10:04 Pain Score Most Recent Pain Score: Most Recent Pain Score Pain Level 0 02/02/23 10:04 Assessment Mental Status: Awake (Alert & Oriented to Patient Baseline) Airway and Respiratory Function: Patent airway with normal (patient baseline) respiratory exam Cardiovascular Function: Hemodynamically Stable Hydration Status: Adequately Hydrated Nausea & Vomiting: No Nausea or Vomiting Pain: Pt. Denies Any Pain Peripheral Nerve Block: Patient did not receive a nerve block
== END 2023-02-02 10:34 | disposition home or self-care (01) ==
LOC: SUR 08:04
PROVIDERS: PCP Nurse Practitioner Family; Visit Provider Ophthalmology
PROC: (CPT 66984; principal; 2023-02-02 09:45)
DX: H25.012 Cortical age-related cataract, left eye (principal); H25.12 Age-related nuclear cataract, left eye; I10 Essential (primary) hypertension
CPT/HCPCS: 66984; V2632

== ENCOUNTER 2023-02-16 10:09 | Day surgery (SDC) | payer MEDICARE, SELFPAY ==
[2023-02-16 11:00] VITALS: BP 148/95; PULSE 58; RESP 16; TEMP 36.5; O2SAT 100
[2023-02-16] MEDS: Tropicam./Phenyleph. (1/2.5%) 5 ML BTL OD ×3 (11:07→11:19)
--- NOTE | 2023-02-16 11:24 | W.ANESPRE ---
General Info Date of Service Date Performed: 02/16/23 Height: 6 ft 1 in Weight: 98.7 kg Body Mass Index (BMI): 28.7 Surgical Procedure: Operation Date: 02/16/23 13:40 Proposed Procedure Side Surgeon p Cataract Extraction with IOL Implant Right Nile Bella MD Meds Allergies and Home Medications Allergies Allergy/AdvReac Type Severity Reaction Status Date / Time bupropion AdvReac Intermediate INSOMNIA Verified 02/16/23 10:58 ciprofloxacin HCl AdvReac Intermediate Verified 02/16/23 10:58 [From Cipro] amphetamine AdvReac Unknown Verified 02/16/23 10:58 dextroamphetamine AdvReac Unknown Verified 02/16/23 10:58 Home Medication Medication Instructions Recorded Lactobacillus acidophilus 10 1 cap PO DAILY PRN 05/01/13 billion cell capsule (Probiotic) acetaminophen 500 mg tablet (Mapap 2 tab PO PRN 02/13/14 Extra Strength) ibuprofen 200 mg tablet 600 mg PO DAILY PRN 08/13/17 magnesium gluconate 27 mg 27 mg PO BID 08/28/18 magnesium (500 mg) tablet oxygen-air delivery systems ##1 01/06/20 ascorbate calcium (vitamin C) 500 500 mg PO DAILY PRN 08/24/20 mg tablet maría (Zingiber officinalis) 250 250 mg PO DAILY PRN 11/15/20 mg capsule (maría extract) cetirizine 10 mg capsule (All Day 10 mg PO DAILY PRN 02/08/21 Allergy (cetirizine)) fluticasone propionate 50 2 spray intranasal DAILY PRN #1 inh 11/30/21 mcg/actuation nasal spray,suspension clotrimazole 1 % topical cream 1 applic topical BID #45 grams 04/06/22 tamsulosin 0.4 mg capsule 0.4 - 0.8 mg (1 - 2 x 0.4 mg) PO 04/06/22 HS #180 tab-caps sennosides 8.6 mg capsule (senna) 17.2 mg (2 x 8.6 mg) PO DAILY PRN 06/26/22 constipation #90 caps lisinopril 10 mg tablet 10 mg PO BID #180 tabs 07/13/22 ciclopirox 8 % topical solution 1 applic topical DAILY 3 months 12/06/22 #6.6 mL ketoconazole 2 % topical cream 1 applic topical DAILY 3 months 12/06/22 #60 grams tadalafil 5 mg tablet (Cialis) 5 mg PO DAILY urination #90 tabs 12/15/22 Current Visit Medications: Current Medications Generic Name Dose Route Start Last Admin Trade Name Freq PRN Reason Stop Dose Admin Acetaminophen 1,000 mg 02/16/23 06:00 Acetaminophen 500 Mg Tab PO 03/18/23 05:59 Q4H PRN PRN Balanced Salt Solution 500 ml 02/16/23 06:00 Balanced Salt Soln.-Plus 500 Ml Bag OP 03/18/23 05:59 DIRECTED [facility] Miscellaneous Medication 0 ml 02/16/23 06:00 Prednisolone 1%, Moxifloxacin 0.5%, Nepafenac 0.1% 5ml Btl OD 03/18/23 05:59 DIRECTED [facility] Miscellaneous Medication 0 ml 02/16/23 06:00 02/16/23 11:19 Tropicam./Phenyleph. (1/2.5%) 5 Ml Btl OD 03/18/23 05:59 1 drp DIRECTED [facility] Administration Tetracaine HCl 0 ml 02/16/23 06:00 Tetracaine 0.5% 4 Ml Btl OD 03/18/23 05:59 DIRECTED [facility] PFSH Active Problems Active Problems: Problem Status Onset Code Tremor of face and hands R25.1 Cortical age-related cataract, right eye H25.011 Nuclear age-related cataract, right eye H25.11 Cortical age-related cataract, left eye H25.012 Nuclear age-related cataract, left eye H25.12 Neuropathy G62.9 Toenail fungus B35.1 Callus L84 Hammertoe of left foot M20.42 Pain in toe M79.676 Elevated PSA, less than 10 ng/ml R97.20 Corns and callosities L84 Nail dystrophy L60.3 Allergies T78.40XA Trigger finger, left M65.30 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 N40.1, N13.8 Hearing loss H91.90 Low back pain M54.5 Varicose veins of both lower extremities I83.93 Restless legs syndrome G25.81 Erectile dysfunction N52.9 Hypertension I10 Hyperlipidemia E78.5 Depression F32.9 Anxiety F41.9 Memory loss R41.3 Intention tremor G25.2 Sensorineural hearing loss, bilateral 02/22/15 H90.3 Onychomycosis B35.1 Obstructive sleep apnea syndrome G47.33 Medical History Medical History Aftercare for healing traumatic fracture of upper leg (06/16/14) Anemia following surgery (06/16/14) Chest pain (04/05/04) History of reduction of closed fracture Hx of renal calculi Lyme borreliosis treated 2020 SHANIQUE on CPAP Rales Subtrochanteric fracture of femur (06/16/14) a. on the left Surgical History Surgical History Colonoscopy - MAC 09/06/10 FRACTURE 06/2014-LEFT FEMUR H/O surgical procedure a. bilateral inguinal hernia repair b. umbilical hernia repair c. bilateral carpal tunnel release d. trigger thumb surgery e. s/p subtrochanteric fx repair with Gamma nail 06/11/14 Open Carpal Tunnel release 03/19;05/20 Repair of inguinal hernia 1989-RIGHT 2006 LEFT 09/2011 ??? Status post carpal tunnel release Status post inguinal hernia repair Status post trigger finger release (02/13/14) Status post vasectomy Trigger Finger release 02/13/14; b/l Vasectomy Tobacco Smoking/Tobacco Use Status: Never Passive smoking exposure: Yes Second hand exposure: Yes Alcohol Alcohol Intake: never Substance Use Substance use: Never Substance use type: does not use Vital Signs and Lab Results Vital Signs Most Recent Vital Signs in EMR: Most Recent Vital Signs Temp Pulse Resp BP Pulse Ox 36.5 C 58 L 16 148/95 H 100 02/16/23 11:00 02/16/23 11:00 02/16/23 11:00 02/16/23 11:00 02/16/23 11:00 Lab Results Blood Type / Crossmatch: No Data to Display Complete Blood Count: No Data to Display Complete Metabolic Panel: No Data to Display Liver Function Panel: No Data to Display Coagulation Panel: No Data to Display Cardiac Panel: No Data to Display Arterial Blood Gas: No Data to Display Venous Blood Gas: No Data to Display Pancreas Panel: No Data to Display Thyroid Panel: No Data to Display Infectious Disease: No Data to Display Blood Cultures: No Data to Display Toxicology Panel: No Data to Display Anesthesia Assessment and Plan Anesthesia History Personal History: No History of Anesthesia Complications Family History: No Family History of Anesthesia Complications Exercise Tolerance Exercise Tolerance: Metabolic Equivalents>4 Pertinent Negatives Pertinent Negatives: No Symptoms of GERD Cardiac & Pulmonary Exam Cardiac Exam: Normal S1/S2 Heart Sounds Pulmonary Exam: Clear Bilateral Breath Sounds Implantable Cardiac Device Does patient have a Pacemaker or an ICD?: No Airway Exam Known Difficult Airway: No Mallampati Class: 2 Mouth Opening: Normal (> 3cm) Thyromental Distance: Greater than 3 cm Neck Range of Motion: Limited ROM Neck Circumference: Normal Teeth Condition: Normal Dentition ASA Classification ASA Score: ASA 2 Emergency Case?: No NPO Status NPO Status: NPO Clears >2 hours, Solids >8 hours Anesthesia Plan Resuscitation Status: Full Code Anesthesia Technique: MAC Anesthesia Airway Planned: Natural Airway Monitors Used: Standard Monitors Preoperative Comments:: From past Anesthetic: IV placement and sedation as backup, primary local 77 yo male for Cataract.
[2023-02-16 11:27] VITALS: BMI 28.7
[2023-02-16] MEDS: Tetracaine 0.5% 4 ML BTL OD (12:10)
[2023-02-16] MEDS: Povidone-Iodine Ophth 30 ML BTL (12:10)
[2023-02-16] MEDS: Phenylephrine/Lidocaine (15/10) MG/ML 1 ML VIAL (12:13)
[2023-02-16] MEDS: Lidocaine 1% Pres-Free 5 ML VIAL (12:13)
[2023-02-16] MEDS: Balanced Salt Soln.-PLUS 500 ML BAG OP (12:13)
[2023-02-16] MEDS: Duovisc Viscoelastic System EACH 1 EACH (12:13)
[2023-02-16 12:31] VITALS: BP 147/103; PULSE 55; RESP 17; TEMP 36.6; O2SAT 98
--- NOTE | 2023-02-16 12:32 | W.PM.DSUDISC ---
Date of service: 02/16/23 Time of Service: 12:32 Discharge Plan Disposition Patient Disposition: Home Discharge Details Attending Provider: Nile Bella Primary Care Provider: Clara Olivier Home Meds and New Rx's Prescriptions: No Action magnesium gluconate 27 mg magnesium (500 mg) tablet 27 mg PO BID All Day Allergy (cetirizine) 10 mg capsule 10 mg PO DAILY PRN tamsulosin 0.4 mg capsule 0.4 - 0.8 mg PO HS Qty: 180 4RF clotrimazole 1 % cream 1 applic topical BID Qty: 45 0RF Rx Instructions: Apply to affected areas twice a dayfor 2-4wks senna 8.6 mg capsule 17.2 mg PO DAILY PRN (Reason: constipation) Qty: 90 1RF (DME) oxygen-air delivery systems Device See Rx Instructions .ROUTE .MEDSUPPLY Qty: 1 Rx Instructions: CPAP @ HS As directed ascorbate calcium (vitamin C) 500 mg tablet 500 mg PO DAILY PRN tadalafil [Cialis] 5 mg tablet 5 mg PO DAILY Qty: 90 4RF Hold Instructions: Changed by Provider ciclopirox 8 % solution 1 applic topical DAILY 90 Days Qty: 6.6 0RF ketoconazole 2 % cream 1 applic topical DAILY 90 Days Qty: 60 0RF Probiotic 1 EACH capsule 1 cap PO DAILY PRN maría extract 250 mg capsule 250 mg PO DAILY PRN Hold Instructions: Pt Stopped/Never Started fluticasone propionate 50 mcg/actuation spray,suspension 2 spray intranasal DAILY PRNQty: 1 lisinopril 10 mg tablet 10 mg PO BID Qty: 180 3RF acetaminophen [Mapap Extra Strength] 500 MG tablet 2 tab PO PRN ibuprofen 200 MG tablet 600 mg PO DAILY PRN Discharge Instructions Stand Alone Forms: Post-op Topical Cataract, Press Ganey (DSU) Discharge Orders Discharge Orders: Discharge Order (Routine); Ordered 02/16/23 Ordered By: Nile Bella DS: Diagnosis Discharge Diagnosis (1) Cortical age-related cataract, right eye: Status: Resolved (2) Nuclear age-related cataract, right eye: Status: Resolved
--- NOTE | 2023-02-16 12:33 | W.PM.OP ---
Date of service: 02/16/23 Time of Service: 12:33 Operative Note Operative Note DATE OF PROCEDURE: 02/16/23 PRE-OP DIAGNOSIS: Nuclear/cortical cataract, right eye POST-OP DIAGNOSIS: same PROCEDURE: Cataract extraction using phacoemulsification with intraocular lens implant, right eye SURGEON: Nile Bella ANESTHESIA TYPE: Local By Surgeon and MAC Refer to Anesthesia Record ESTIMATED BLOOD LOSS: 0 PATHOLOGY: none sent COMPLICATIONS: None Patient was transported to: same day Patient's condition: stable Implants: Jed [employer] Jed [employer]ecnis Eyhance [id number] Indications: Progressive visual loss due to cataract, right eye Procedure Description: CATARACT SURGERY OPERATIVE REPORT PREOPERATIVE DIAGNOSIS: 1. Nuclear/cortical cataract, right eye POSTOPERATIVE DIAGNOSIS: Same OPERATION: 1. Cataract extraction using phacoemulsification with posterior chamber intraocular lens implant, right eye. IOL: IOL Service Car Operator/Model: Jed [employer] Jed Tecnis Eyhance [id number] IOL Power: + 20.0 diopters IOL Serial Number: [id number] Optic Diameter: 6.0mm Haptic/Overall Diameter: 13.0mm PHACO INFO: Rigo DogTime Mediaurion Vision System with OZil and Active Fluidics Cumulative Dispersed Energy (CDE): 5.05 seconds SURGEON: Nile Bella MD, VENKAT ANESTHESIA: Monitored Anesthesia Care (MAC), with local sub-tenon's anesthetic infiltration COMPLICATIONS: None SPECIMENS: None INDICATIONS FOR PROCEDURE: The patient is a 77-year-old male with history of diminished visual acuity in both eyes secondary to the development of bilateral nuclear/cortical cataract. He has already undergone cataract surgery in the left eye and is doing well postoperatively. He now presents for cataract surgery in the right eye. See office notes for detailed information. PROCEDURE: The correct surgical eye was identified and marked as the right eye and the pupil was dilated in the preoperative area using mydriatics and cycloplegics. The dilated pupil size was 6.0 mm. The patient elected to proceed without oral sedation. The patient was brought to the operating room where cardiopulmonary monitoring was instituted and surgical time-out was performed, confirming the correct operative eye and IOL power. Topical anesthesia was administered and ophthalmic povidone-iodine 5% was instilled into the conjunctival fornices. The efren-ocular area was prepped with Betadine 10% solution and draped in the usual sterile fashion for intraocular surgery, including an aperture drape. A Tegaderm transparent film dressing was cut in half and used to cover the lashes and lid margins. Care was taken to sequester the lashes and lid margins under the Tegaderm dressing. A lid speculum was placed between the lids of the operative eye and the Rigo LuxOR Revalia operating microscope was maneuvered into position. Mica scissors were then used to make a conjunctival buttonhole approximately 6mm posterior to the limbus in the inferonasal quadrant. Blunt dissection was carried out to expose bare sclera, and a blunt-tipped sub-tenon?s anesthesia cannula was introduced and passed posteriorly along the globe where non-preserved plain lidocaine was injected into posterior sub-Tenon?s space. A sideport knife was used to make a paracentesis port. Intraocular phenylephrine/lidocaine was injected into the anterior chamber. The anterior chamber was filled with viscoelastic. A keratome knife was used to construct a 2-plane clear corneal tunnel extending 2.0mm into clear cornea. A flap was raised on the anterior capsule and capsulorhexis forceps were used to complete a continuous curvilinear capsulorhexis of 5.0 mm. Balanced salt solution was then used to perform cortical cleaving hydrodissection and nuclear hydrodelineation until the lens could be freely rotated within the capsular bag. The lens nucleus was then disassembled and removed within the capsular bag and iris plane using phacoemulsification. Residual cortical material was removed using the I/A handpiece. The posterior capsule was carefully polished to remove as much residual lens epithelial cells as safely possible. The capsular bag was then inflated and the anterior chamber deepened with cohesive viscoelastic. The lens implant described above was inserted into the capsular bag using the Jed and C[employer] Simplicity pre-loaded injector. A Kuglen hook was used to dial the IOL into position. Residual viscoelastic was then removed first from posterior to the IOL, then from the anterior chamber using the I/A handpiece. The lens implant was noted to center nicely within the capsular bag. The incisions were stromally hydrated, and the anterior chamber was reformed using BSS. Then 0.5cc of moxifloxacin 1.0mg/ml were injected into the capsular bag and anterior chamber. The incisions were checked with a Weck spear and found to be secure. Several drops of ophthalmic povidone-iodine 5% were then applied to the eye followed by two drops of Imprimis combination prednisolone/moxifloxacin/nepafenac solution. The drapes were removed and a clear plastic protective eye shield was placed over the eye. The patient was then returned to [facility] Day Surgery in stable condition.
--- NOTE | 2023-02-16 12:49 | W.ANESPOSTOP ---
Postoperative Evaluation Date, Time and Location Date Performed: 02/16/23 Time Performed: 12:33 Patient Location: Day Surgery Unit Vital Signs Most Recent Imported Vital Signs: Most Recent Vital Signs Temp Pulse Resp BP Pulse Ox 36.6 C 55 L 17 147/103 H 98 02/16/23 12:31 02/16/23 12:31 02/16/23 12:31 02/16/23 12:31 02/16/23 12:31 Pain Score Most Recent Pain Score: Most Recent Pain Score Pain Level 0 02/16/23 12:31 Assessment Mental Status: Awake (Alert & Oriented to Patient Baseline) Airway and Respiratory Function: Patent airway with normal (patient baseline) respiratory exam Cardiovascular Function: Hemodynamically Stable Hydration Status: Adequately Hydrated Nausea & Vomiting: No Nausea or Vomiting Pain: Pt. Denies Any Pain Peripheral Nerve Block: Other (Local by Dr. Bella)
== END 2023-02-16 12:55 | disposition home or self-care (01) ==
LOC: SUR 10:10
PROVIDERS: PCP Nurse Practitioner Family; Visit Provider Ophthalmology
PROC: (CPT 66984; principal; 2023-02-16 13:30)
DX: H25.011 Cortical age-related cataract, right eye (principal); H25.11 Age-related nuclear cataract, right eye; I10 Essential (primary) hypertension; G47.33 Obstructive sleep apnea (adult) (pediatric); Z98.42 Cataract extraction status, left eye
CPT/HCPCS: 66984; 00123; V2632

== ENCOUNTER → 2023-02-26 09:53 | Outpatient (BNVA) | payer MEDICARE, SELFPAY | PROVIDERS: PCP Nurse Practitioner Family; Referring Provider Nurse Practitioner; Visit Provider Psychiatry & Neurology Neurology | DX: G25.2 Other specified forms of tremor (principal); R29.2 Abnormal reflex; R41.3 Other amnesia; G95.9 Disease of spinal cord, unspecified; I10 Essential (primary) hypertension | CPT/HCPCS: 99214 ==

== ENCOUNTER → 2023-04-25 09:26 | Outpatient (BNVA) | payer MEDICARE, SELFPAY | PROVIDERS: PCP Nurse Practitioner Family; Referring Provider Nurse Practitioner Family; Visit Provider Podiatrist | DX: G62.89 Other specified polyneuropathies (principal); L84 Corns and callosities; L60.3 Nail dystrophy; G25.81 Restless legs syndrome; R09.89 Other specified symptoms and signs involving the circulatory and respiratory systems; R60.0 Localized edema; L60.8 Other nail disorders; L85.9 Epidermal thickening, unspecified; A69.20 Lyme disease, unspecified; M20.42 Other hammer toe(s) (acquired), left foot; R20.9 Unspecified disturbances of skin sensation; M79.675 Pain in left toe(s) | CPT/HCPCS: 11055; 11721 ==

== ENCOUNTER 2023-06-08 08:02 | Outpatient (CLI) | payer MEDICARE, SELFPAY ==
[2023-06-08 09:14] LABS: Anion Gap 6.8 mmol/L (3-11); BUN 19 mg/dL (7-18); CO2 28.2 mmol/L (21.0-32.0); CREATININE 0.9 mg/dL (0.70-1.30); Calcium 9.2 mg/dL (8.5-10.1); Chloride 105 mmol/L (98-107); Cholesterol 180 mg/dL (<200); Estimated GFR 88.51 (mL/min/1.73m2); Glucose 104 mg/dL (74-106); HDL Cholesterol 67 mg/dL (40-60); Potassium 4.3 mmol/L (3.5-5.1); Sodium 140 mmol/L (136-145)
[2023-06-08 09:20] LABS: Triglyceride <25 mg/dL (<150)
[2023-06-08 09:30] LABS: LDL CHOLESTEROL 104 mg/dL (<100)
[2023-06-08 18:31] LABS: PSA, Diagnostic 9.5 ng/mL (<=6.5)
== END 2023-06-08 08:03 | disposition home or self-care (01) ==
LOC: LBO 08:02
PROVIDERS: Urology; PCP Nurse Practitioner Family; Visit Provider Nurse Practitioner Family
DX: R97.20 Elevated prostate specific antigen [PSA] (principal); E78.5 Hyperlipidemia, unspecified; F41.9 Anxiety disorder, unspecified; G47.33 Obstructive sleep apnea (adult) (pediatric); I10 Essential (primary) hypertension; N52.9 Male erectile dysfunction, unspecified; Z00.00 Encounter for general adult medical examination without abnormal findings
CPT/HCPCS: 36415; 80048; 80061; 83721; 84153

== ENCOUNTER → 2023-06-19 10:28 | Outpatient (BNVA) | payer MEDICARE, SELFPAY | PROVIDERS: PCP Nurse Practitioner Family; Referring Provider Nurse Practitioner Family; Visit Provider Urology | DX: N40.1 Benign prostatic hyperplasia with lower urinary tract symptoms (principal); N13.8 Other obstructive and reflux uropathy; R97.20 Elevated prostate specific antigen [PSA] | CPT/HCPCS: 81003; 99215 ==

== ENCOUNTER → 2023-07-04 09:28 | Outpatient (BNVA) | payer MEDICARE, SELFPAY | PROVIDERS: PCP Nurse Practitioner Family; Referring Provider Nurse Practitioner Family; Visit Provider Podiatrist | DX: B35.1 Tinea unguium; Q84.5 Enlarged and hypertrophic nails; R60.0 Localized edema; G62.9 Polyneuropathy, unspecified; I83.893 Varicose veins of bilateral lower extremities with other complications; M20.42 Other hammer toe(s) (acquired), left foot; R09.89 Other specified symptoms and signs involving the circulatory and respiratory systems; Z87.39 Personal history of other diseases of the musculoskeletal system and connective tissue; Z86.19 Personal history of other infectious and parasitic diseases; M79.675 Pain in left toe(s); M79.674 Pain in right toe(s) | CPT/HCPCS: 11721 ==

== ENCOUNTER 2023-07-27 22:05 | Emergency (ER) | payer MEDICARE, SELFPAY ==
[2023-07-27] VITALS (18 sets, daily range): BP systolic 170–214; BP diastolic 77–101; PULSE 53–69; RESP 18; TEMP 36.7; O2SAT 95–99
--- NOTE | 2023-07-27 22:00 | RT.EKG_ITS ---
APPROVED REPORT Exam: Resting ECG Reason for Exam: Fatigue Patient Location: E HR:61 bpm ECG Measurements Heart Rate 61 AXIS MO 220 P 64 QRSd 92 QRS 21 QT 397 T 23 QTc 401 Conclusion Sinus rhythm...normal P axis, V-rate 60- 99 Prolonged MO interval...MO >220, V-rate 50- 90 Physician: no stemi
--- NOTE | 2023-07-27 22:29 | ED.GENADUL_ITS ---
Discharge Plan Disposition Patient Disposition: Home Condition: Good Discharge Details Clinical Impression: Hypertension Primary Care Provider: Clara Olivier ED Provider: Archie Sheppard Home Meds and New Rx's Prescriptions: No Action magnesium gluconate 27 mg magnesium (500 mg) tablet 27 mg PO BID All Day Allergy (cetirizine) 10 mg capsule 10 mg PO DAILY PRN tamsulosin 0.4 mg capsule 0.4 - 0.8 mg PO HS Qty: 180 4RF clotrimazole 1 % cream 1 applic topical BID Qty: 45 0RF Rx Instructions: Apply to affected areas twice a dayfor 2-4wks lisinopril 10 mg tablet 10 mg PO BID Qty: 180 3RF senna 8.6 mg capsule 17.2 mg PO DAILY PRN (Reason: constipation) Qty: 90 1RF (DME) oxygen-air delivery systems Device See Rx Instructions .ROUTE .MEDSUPPLY Qty: 1 Rx Instructions: CPAP @ HS As directed ascorbate calcium (vitamin C) 500 mg tablet 500 mg PO DAILY PRN tadalafil [Cialis] 5 mg tablet 5 mg PO DAILY Qty: 90 4RF Hold Instructions: Changed by Provider Probiotic 1 EACH capsule 1 cap PO DAILY PRN maría extract 250 mg capsule 250 mg PO DAILY PRN Hold Instructions: Pt Stopped/Never Started fluticasone propionate 50 mcg/actuation spray,suspension 2 spray intranasal DAILY PRNQty: 1 acetaminophen [Mapap Extra Strength] 500 MG tablet 2 tab PO PRN ibuprofen 200 MG tablet 600 mg PO DAILY PRN Discharge Instructions Instructions: Hypertension (ED) Additional Instructions: At this time your workup is returned and is very reassuring. Your heart markers show no signs of heart attack, your chest x-ray shows no signs of pneumonia or mass. Your renal function is stable. Your electrolytes are normal. Please follow-up closely with your primary care provider for reassessment. Please continue taking your lisinopril as directed. If you notice any worsening of your symptoms, or any new symptoms such as vomiting, diarrhea, fever, chills, shortness of breath, chest pain, numbness, weakness, or fainting , please return immediately to the emergency department for reevaluation. Please follow up with your primary care provider as soon as possible for reassessment and reevaluation. As always, it was a pleasure participating in your medical care today. Referrals: Clara Olivier NP [Primary Care Provider] - [facility] General Date/Time Provider Initiated Documentation: 07/27/23 22:11 . [facility] Narrative: This is a 77-year-old male with a past medical history of hypertension, high cholesterol, currently on lisinopril for blood pressure who presents today for evaluation of feeling off. Patient has a very hard time describing exactly what prompted him to feel initially concerned, but per and patient he was sitting watching some TV, he felt on and off for tiredness, however he states normally he just falls asleep. He states that at some point this evening about an hour or so prior to arrival he decided to check his blood pressure. reports that this is something he does frequently. When he checked his blood pressure was noticed to be notably elevated in the high 190s to 200s systolic. He contacted his daughter family member who is a nurse, and appropriately it was recommended that he come in for evaluation. He did take a Cialis tablet this evening, but did not have intercourse. He denies any cocaine or methamphetamine. He denies any chest pain, tearing or ripping sensation in his chest, head neck or shoulder pain. He denies any headache or lightheadedness. He denies any falls or trauma. He denies missing any recent medications. He denies excessive caffeine use, states that he only had 1-1/2 cups of coffee this morning. He denies any other complaints at this time. Normally his blood pressure is not elevated and this fashion. Related Data Home Medications Medication Instructions Recorded Confirmed Lactobacillus acidophilus 10 1 cap PO DAILY PRN 05/01/13 07/27/23 billion cell capsule (Probiotic) acetaminophen 500 mg tablet (Mapap 2 tab PO PRN 02/13/14 07/27/23 Extra Strength) ibuprofen 200 mg tablet 600 mg PO DAILY PRN 08/13/17 07/27/23 magnesium gluconate 27 mg 27 mg PO BID 08/28/18 07/27/23 magnesium (500 mg) tablet oxygen-air delivery systems ##1 01/06/20 07/04/23 ascorbate calcium (vitamin C) 500 500 mg PO DAILY PRN 08/24/20 07/27/23 mg tablet maría (Zingiber officinalis) 250 250 mg PO DAILY PRN 11/15/20 07/27/23 mg capsule (maría extract) cetirizine 10 mg capsule (All Day 10 mg PO DAILY PRN 02/08/21 07/27/23 Allergy (cetirizine)) fluticasone propionate 50 2 spray intranasal DAILY PRN #1 inh 11/30/21 07/27/23 mcg/actuation nasal spray,suspension clotrimazole 1 % topical cream 1 applic topical BID #45 grams 04/06/22 07/27/23 tamsulosin 0.4 mg capsule 0.4 - 0.8 mg (1 - 2 x 0.4 mg) PO 04/06/22 07/27/23 HS #180 tab-caps sennosides 8.6 mg capsule (senna) 17.2 mg (2 x 8.6 mg) PO DAILY PRN 06/26/22 07/27/23 constipation #90 caps tadalafil 5 mg tablet (Cialis) 5 mg PO DAILY urination #90 tabs 12/15/22 07/27/23 lisinopril 10 mg tablet 10 mg PO BID #180 tabs 04/09/23 07/27/23 Previous Rx's Medication Instructions Recorded clotrimazole 1 % topical cream 1 applic topical BID #45 grams 04/06/22 tamsulosin 0.4 mg capsule 0.4 - 0.8 mg (1 - 2 x 0.4 mg) PO 04/06/22 HS #180 tab-caps sennosides 8.6 mg capsule (senna) 17.2 mg (2 x 8.6 mg) PO DAILY PRN 06/26/22 constipation #90 caps tadalafil 5 mg tablet (Cialis) 5 mg PO DAILY urination #90 tabs 12/15/22 lisinopril 10 mg tablet 10 mg PO BID #180 tabs 04/09/23 Allergies Allergy/AdvReac Type Severity Reaction Status Date / Time bupropion AdvReac Intermediate INSOMNIA Verified 07/27/23 22:13 ciprofloxacin HCl AdvReac Intermediate Other (See Verified 07/27/23 22:13 [From Cipro] Comment) dextroamphetamine AdvReac Intermediate Other (See Verified 07/27/23 22:13 Comment) amphetamine AdvReac Unknown Other (See Verified 07/27/23 22:13 Comment) General Stated Complaint: GenMedical NAVDEEP: 3 Review of Systems All systems reviewed & are unremarkable except as noted in HPI and below Exam Narrative Exam Narrative: 1.Const: Well-nourished, Well-developed, appearing stated age 2.Eyes: PERRL, no conjunctival injection, and symmetrical lids. 3.ENT: Atraumatic external nose and ears. Dry MM. Neck: Symmetric, trachea midline, No thyromegaly. 4.CVS: +S1/S2, No murmurs or gallops. Peripheral pulses 2+ and equal in all extremities. Brisk capillary refill in all extremities. 5.RESP: Unlabored respiratory effort. Clear to auscultation bilaterally. No wheezes rales or rhonchi 6.GI: Soft, Nontender/Nondistended, No hepatosplenomegaly. No guarding or rebound. 7.MSK: Normocephalic/Atraumatic, Extremities w/o deformity or ttp No cyanosis or clubbing, Normal movement of all extremities 8.Skin: Warm, Dry. No rashes or lesions. 9.Neuro: manager security and safety II-XII grossly intact. Sensation grossly intact, no focal neurologic deficits. All 6 cardinal planes of vision are fully intact. No evidence of rotatory or vertical nystagmus. The patient demonstrated a normal [id number]-[id number]-kljilm, good dexterity. There was no evidence of dysdiadochokinesia. Patient was able to ambulate without difficulty. There was no wide-based gait. Romberg testing was normal. Tqmq-lo-ilpp testing was normal. Sensation was intact bilaterally as well as muscle strength bilaterally for all extremities. Patient was able to verbalize butter cup with no slurring, or miss pronunciation. 10.Psych: (AAO) x3. Appropriate mood and affect Course Vital Signs Vital signs: Vital Signs Temperature 36.7 C 07/27/23 22:08 Pulse 69 07/27/23 22:08 Respiratory Rate 18 07/27/23 22:08 Blood Pressure 214/101 H 07/27/23 22:08 Pulse Oximetry 99 07/27/23 22:08 Temperature 36.7 C 07/27/23 22:08 Temperature Source Temporal Artery Scan 07/27/23 22:08 Pulse 69 07/27/23 22:08 Respiratory Rate 18 07/27/23 22:08 Respiratory Effort Normal, Non-Labored 07/27/23 22:16 Blood Pressure 214/101 H 07/27/23 22:08 Blood Pressure Position Sitting 07/27/23 22:08 Pulse Oximetry 99 07/27/23 22:08 Oxygen Delivery Method Room Air 07/27/23 22:08 Oxygen Flow Rate 0 07/27/23 22:08 Pain Level 0 07/27/23 22:08 Medical Decision Making This is a 77-year-old male with a past medical history of hypertension, high cholesterol, currently on lisinopril for blood pressure who presents today for evaluation of feeling off. Patient has a very hard time describing exactly what prompted him to feel initially concerned, but per and patient he was sitting watching some TV, he felt on and off for tiredness, however he states normally he just falls asleep. He states that at some point this evening about an hour or so prior to arrival he decided to check his blood pressure. reports that this is something he does frequently. When he checked his blood pressure was noticed to be notably elevated in the high 190s to 200s systolic. He contacted his daughter family member who is a nurse, and appropriately it was recommended that he come in for evaluation. He did take a Cialis tablet this evening, but did not have intercourse. He denies any cocaine or methamphetamine. He denies any chest pain, tearing or ripping sensation in his chest, head neck or shoulder pain. He denies any headache or lightheadedness. He denies any falls or trauma. He denies missing any recent medications. He denies excessive caffeine use, states that he only had 1-1/2 cups of coffee this morning. He denies any other complaints at this time. Normally his blood pressure is not elevated and this fashion. Exam demonstrates well-appearing male, vital signs demonstrate hypertension with a systolic of 214 and diastolic of 101, however heart rate normal. EKG shows no evidence of STEMI, no significant ST elevations or depressions. Differential is broad, but includes accidental missed dose of his medication/antihypertensive today, electrolyte abnormality, renal dysfunction and much less likely ACS. Symptoms appear clinically inconsistent with dissection with no tearing or ripping, no chest pain, no syncope. Will evaluate for concerning etiologies, monitor closely and reassess. Will allow the patient to rest and if his blood pressure does not improve on its own, we will give small dose of IV antihypertensive medication. 12:01 AM Laboratory workup has returned normal, troponin normal, no white count bandemia or left shift. Electrolytes and renal function normal. proBNP normal suggesting no signs of heart strain or fluid overload. Thyroid function normal, no evidence of hyperthyroid emergency or thyroid storm. Patient feels well. Blood pressure is now in the 170s systolic. Patient continues to remain totally asymptomatic. I discussed administration of a single dose of antihypertensives here versus watchful waiting at home. Patient states that he actually took his second dose of lisinopril just before they left, and he is concerned that taking an additional medication could lower his blood pressure too much. As the patient is asymptomatic for his hypertension I do feel that holding off on any additional antihypertensive agents at this time is very reasonable, scheduled especially given the patient's concerns. Patient stable for discharge, he otherwise feels well. I did offer to speak with the patient's daughter who is a nurse, however he has requested that I hold off on giving her a call. I did make it clear that I would be happy to speak with her if she had any questions or wanted to further discuss the case. Additionally, the patient states that he has not been able to access his medical records for the past 1 to 2 months, and did asked that I review his cholesterol results and A1c result with him. I did go over these and we discussed his LDL, HDL, and triglycerides. They seem to be at a very reasonable level considering his age. A1c was also very benign, does not show need for any new interventions. Discussed red flags for which to return. I have extensively reviewed the treatment plan and discharge instructions with the patient and their family. I have addressed all patient concerns at this time. The patient and family was made aware of what symptoms to monitor for that would warrant a return to the emergency department. Discussed the plan with the patient and family, they demonstrate verbal understanding and agreement with our assessment and plan at this time. The documentation in this chart was dictated using [employer] dictation software. Please excuse any dictation errors. FINDINGS: Lungs: Linear opacities of atelectasis and/or fibrosis at the left lung base. The remainder of the lungs clear. Pleural spaces: Unremarkable. No pleural effusion. No pneumothorax. Heart/Mediastinum: Unremarkable. No cardiomegaly. Bones/joints: Degenerative changes within thoracic spine. IMPRESSION: No infiltrates effusions. Thank you for allowing us to participate in the care of your patient. 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) Hearing loss (Acute) mild; bilateral Low back pain (Acute) chronic Varicose veins of both lower extremities (Chronic) Restless legs syndrome (Chronic) Erectile dysfunction (Chronic) Hypertension (Chronic) Hyperlipidemia (Chronic) Depression (Chronic) Anxiety (Chronic) Memory loss (Acute) Sensorineural hearing loss, bilateral (Acute 02/22/15) Onychomycosis (Acute) Obstructive sleep apnea syndrome (Acute) on CPAP Medical History Lyme borreliosis treated 2020 Rales Chest pain (04/05/04) History of reduction of closed fracture Aftercare for healing traumatic fracture of upper leg (06/16/14) Anemia following surgery (06/16/14) Subtrochanteric fracture of femur (06/16/14) a. on the left Hx of renal calculi Surgical History Cortical age-related cataract, right eye Nuclear age-related cataract, right eye Cortical age-related cataract, left eye Nuclear age-related cataract, left eye Status post carpal tunnel release Status post inguinal hernia repair Status post trigger finger release (02/13/14) Status post vasectomy Vasectomy Trigger Finger release 02/13/14; b/l Open Carpal Tunnel release 03/19;05/20 Repair of inguinal hernia 1990-RIGHT 2006 LEFT 09/2011 ??? FRACTURE 06/2014-LEFT [place] [facility] [place]O surgical procedure a. bilateral inguinal hernia repair b. umbilical hernia repair c. bilateral carpal tunnel release d. trigger thumb surgery e. s/p subtrochanteric fx repair with Gamma nail 06/11/14 Family History Mother , 78 Essential hypertension Stroke Father , [place] at age 76. Heart disease ND Brother Heart disease AORTA ANEURYSM Maternal Grandfather No problems noted. Paternal Grandfather No problems noted. Maternal Grandmother Stroke Paternal Grandmother No problems noted. Son Diabetes Daughter No problems noted. Daughter No problems noted. Daughter Diabetes Social History Smoking/Tobacco Use Status: Never Second Hand Exposure: Yes Smoking risk assessment performed?: Yes Alcohol Intake: never Drug use: Never Substance use type: does not use Caregiver/Support person: No Household members: spouse Housing: house Communication Needs: Hard of Hearing Do you need help understanding health information?: Rarely current occupation: Semi-retired [employer]; [employer] Pets and animals: No Do you think of yourself as: straight/heterosexual Current gender identity: male What is your relationship status?: How often do you talk on the phone with friends or family?: once per week How often do you get together with friends or relatives?: decline to answer How often do you attend rastafarian or lutheran services?: 4 or more times per year Do you belong to any clubs or organized social groups?: no Panel score (0-1 are the most socially isolated patients): 2 What type of physical activity do you participate in: walking Simi/Congregational: Yazidi Special simi needs: No Seatbelt use: always Drive intox or ride w/intox patrol driver: No Do you feel safe at home: Yes Do you feel safe in your relationship?: Yes
[2023-07-27 22:41] LABS: Abs Immature Grans 0.01 10^3/uL (0.0-0.06); Absolute Basophil Count 0.03 10^3/uL (0.0-0.2); Absolute Eosinophil Count 0.17 10^3/uL (0.0-0.7); Absolute Lymphocyte Count 1.87 10^3/uL (1.2-3.4); Absolute Monocyte Count 0.71 10^3/uL (0.1-0.8); Absolute Neutrophil Count 3.93 10^3/uL (1.2-6.7); Basophils % 0.4; Eosinophils % 2.5; HCT 41.7 % (40.0-50.0); HGB 13.9 g/dL (13.5-17.5); Immature Grans % 0.1; Lymphocytes % 27.8; MCH 30.8 pg (27.0-33.0); MCHC 33.3 % (32.0-36.0); MCV 93 fL (80-95); MPV 10.5 fL (8.0-11.0); Monocytes % 10.6; Neutrophils % 58.6; Platelet Count 210 10^3/uL (130-400); RBC 4.51 10^6/uL (4.36-5.78); RDW 12.3 % (11.8-14.1); RDW-SD 42.1 fL; WBC 6.72 10^3/uL (4.4-10.8)
[2023-07-27] MEDS: Normal Saline 500 ML IV (22:45)
[2023-07-27 22:56] LABS: PTT Activated 22.8 sec (23.6-32.8); Prothrombin Time 10.4 sec (9.1-11.1)
--- NOTE | 2023-07-27 22:57 | DI.RAD_ITS ---
Exam(s) XR PORTABLE CHEST AP EXAM: XR PORTABLE CHEST AP CLINICAL HISTORY: hypertension, chest discomfort TECHNIQUE: 2D digital imaging was performed. COMPARISON: CR XR CHEST 2V PA LATERAL from 04/23/2019 FINDINGS: LUNGS: Linear scarring at the left lung base, otherwise clear. No pleural abnormality seen. HEART: Normal size. AORTA: Mildly tortuous. BONES: Unremarkable for age. Soft tissues: Unremarkable. IMPRESSION: No acute findings. DATA REPOSITORY: RADIATION DOSE DELIVERED:
[2023-07-27 23:06] LABS: ALT 24 U/L (16-63); AST 15 U/L (15-37); Albumin 3.8 g/dL (3.4-5.0); Alkaline Phosphatase 61 U/L (46-116); Anion Gap 8.9 mmol/L (3-11); BUN 21 mg/dL (7-18); Bilirubin, Total 0.3 mg/dL (0.2-1.0); CO2 27.1 mmol/L (21.0-32.0); CREATININE 0.9 mg/dL (0.70-1.30); Calcium 8.5 mg/dL (8.5-10.1); Chloride 105 mmol/L (98-107); Estimated GFR 88.51 (mL/min/1.73m2); Glucose 121 mg/dL (74-106); NT-proBNP 53 pg/mL (<300); Potassium 3.6 mmol/L (3.5-5.1); Sodium 141 mmol/L (136-145); TSH (W/Ref FT4) 2.75 uIU/mL (0.36-3.74); Troponin I < 50 ng/L (< or =60)
--- NOTE | 2023-07-27 23:28 | DI.VRAD_ITS ---
PROCEDURE INFORMATION: Exam: XR Chest Exam date and time: 07/27/2023 10:44 PM Age: 77 years old Clinical indication: Other: Hypertension, chest discomfort TECHNIQUE: Imaging protocol: Radiologic exam of the chest. Views: 1 view. COMPARISON: CR XR CHEST 2V PA LATERAL 04/23/2019 1:02 PM FINDINGS: Lungs: Linear opacities of atelectasis and/or fibrosis at the left lung base. The remainder of the lungs clear. Pleural spaces: Unremarkable. No pleural effusion. No pneumothorax. Heart/Mediastinum: Unremarkable. No cardiomegaly. Bones/joints: Degenerative changes within thoracic spine. IMPRESSION: No infiltrates effusions. Dictated and Authenticated by: Benny Cain MD. Ordering:ALEJANDRO Almanza MD
[2023-07-28 00:17] VITALS: BP 189/94; PULSE 60; RESP 18; O2SAT 98
== END 2023-07-28 00:17 | disposition home or self-care (01) ==
PROVIDERS: Emergency Provider Student in an Organized Health Care Education/Training Program; PCP Nurse Practitioner Family
DX: R53.83 Other fatigue (principal); I10 Essential (primary) hypertension; E78.5 Hyperlipidemia, unspecified
CPT/HCPCS: 80053; 82962; 93005; 96360; 99285; 71045; 83880; 84443; 84484; 85025; 85610; 85730; 93010; 99284

== ENCOUNTER → 2023-09-03 10:11 | Outpatient (BNVA) | payer MEDICARE, SELFPAY | PROVIDERS: PCP Nurse Practitioner Family; Referring Provider Nurse Practitioner Family; Visit Provider Psychiatry & Neurology Neurology | DX: G25.2 Other specified forms of tremor (principal); R29.2 Abnormal reflex; R41.3 Other amnesia; G95.9 Disease of spinal cord, unspecified | CPT/HCPCS: 99214 ==

== ENCOUNTER → 2023-09-18 10:49 | Outpatient (BNVA) | payer MEDICARE, SELFPAY | PROVIDERS: PCP Nurse Practitioner Family; Referring Provider Nurse Practitioner Family; Visit Provider Urology | DX: N42.89 Other specified disorders of prostate (principal); R97.20 Elevated prostate specific antigen [PSA] | CPT/HCPCS: 99215 ==

== ENCOUNTER → 2023-10-10 09:36 | Outpatient (BNVA) | payer MEDICARE, SELFPAY | PROVIDERS: PCP Nurse Practitioner Family; Referring Provider Nurse Practitioner Family; Visit Provider Podiatrist | DX: M20.42 Other hammer toe(s) (acquired), left foot (principal); B35.1 Tinea unguium; I83.93 Asymptomatic varicose veins of bilateral lower extremities; G25.81 Restless legs syndrome; R60.0 Localized edema; L60.3 Nail dystrophy; L60.8 Other nail disorders; L60.2 Onychogryphosis | CPT/HCPCS: 11721 ==

== ENCOUNTER 2023-11-01 16:14 | Outpatient (REF) | payer MEDICARE, SELFPAY ==
[2023-11-01 13:38] LABS: Bilirubin Negative (Negative); Blood Negative (Negative); Clarity Clear (Clear); Glucose Negative (Negative); Ketones Negative (Negative); Leukocyte Esterase Negative (Negative); Nitrite Negative (Negative); Specific Gravity 1.025 (1.005-1.025); Urobilinogen 0.2 mg/dL (Up to 0.2)
== END 2023-11-01 16:15 | disposition home or self-care (01) ==
LOC: LBN 16:14
PROVIDERS: PCP Nurse Practitioner Family; Visit Provider Urology
DX: R30.0 Dysuria (principal)
CPT/HCPCS: 81003; 87086

== ENCOUNTER → 2024-01-09 09:29 | Outpatient (BNVA) | payer MEDICARE, SELFPAY | PROVIDERS: PCP Nurse Practitioner Family; Referring Provider Nurse Practitioner Family; Visit Provider Podiatrist | DX: L60.3 Nail dystrophy (principal); B35.1 Tinea unguium; G62.9 Polyneuropathy, unspecified; I83.93 Asymptomatic varicose veins of bilateral lower extremities; I73.89 Other specified peripheral vascular diseases; R60.0 Localized edema; R20.8 Other disturbances of skin sensation | CPT/HCPCS: 11721 ==

== ENCOUNTER 2024-02-06 11:22 | Outpatient (CLI) | payer MEDICARE, SELFPAY ==
[2024-02-06 23:20] LABS: PSA, Diagnostic 9.7 ng/mL (<=6.5)
== END 2024-02-06 11:23 | disposition home or self-care (01) ==
LOC: LBO 11:26
PROVIDERS: PCP Nurse Practitioner Family; Visit Provider Urology
DX: R97.20 Elevated prostate specific antigen [PSA] (principal)
CPT/HCPCS: 36415; 84153

== ENCOUNTER → 2024-02-15 10:02 | Outpatient (BNVA) | payer MEDICARE, SELFPAY | PROVIDERS: PCP Nurse Practitioner Family; Referring Provider Nurse Practitioner Family; Visit Provider Urology | DX: R97.20 Elevated prostate specific antigen [PSA] (principal) | CPT/HCPCS: 99213 ==

== ENCOUNTER → 2024-03-03 10:15 | Outpatient (BNVA) | payer MEDICARE, SELFPAY | PROVIDERS: PCP Nurse Practitioner Family; Visit Provider Psychiatry & Neurology Neurology | DX: G25.2 Other specified forms of tremor (principal); R29.2 Abnormal reflex; R41.3 Other amnesia; G95.9 Disease of spinal cord, unspecified | CPT/HCPCS: 99214 ==

== ENCOUNTER → 2024-03-26 08:27 | Outpatient (BNVA) | payer MEDICARE, SELFPAY | PROVIDERS: PCP Nurse Practitioner Family; Referring Provider Nurse Practitioner Family; Visit Provider Podiatrist | DX: L60.3 Nail dystrophy (principal); I83.93 Asymptomatic varicose veins of bilateral lower extremities; L60.2 Onychogryphosis; B35.1 Tinea unguium; G62.89 Other specified polyneuropathies; G62.9 Polyneuropathy, unspecified; L65.9 Nonscarring hair loss, unspecified; R23.8 Other skin changes; R09.89 Other specified symptoms and signs involving the circulatory and respiratory systems; G25.81 Restless legs syndrome; R20.2 Paresthesia of skin; I83.813 Varicose veins of bilateral lower extremities with pain | CPT/HCPCS: 11721 ==

== ENCOUNTER → 2024-04-15 10:48 | Outpatient (BNVA) | payer MEDICARE, SELFPAY | PROVIDERS: PCP Nurse Practitioner Family; Referring Provider Nurse Practitioner Family; Visit Provider Psychiatry & Neurology Neurology | DX: G25.2 Other specified forms of tremor (principal); R29.2 Abnormal reflex; R41.3 Other amnesia; G95.9 Disease of spinal cord, unspecified | CPT/HCPCS: 99214 ==

== ENCOUNTER → 2024-06-04 09:53 | Outpatient (BNVA) | payer MEDICARE, SELFPAY | PROVIDERS: PCP Nurse Practitioner Family; Referring Provider Nurse Practitioner Family; Visit Provider Podiatrist | DX: L60.3 Nail dystrophy; B35.1 Tinea unguium; G62.9 Polyneuropathy, unspecified; I83.93 Asymptomatic varicose veins of bilateral lower extremities; I73.89 Other specified peripheral vascular diseases; L60.2 Onychogryphosis; R60.0 Localized edema; R09.89 Other specified symptoms and signs involving the circulatory and respiratory systems; L65.9 Nonscarring hair loss, unspecified; L60.8 Other nail disorders; R20.8 Other disturbances of skin sensation; R23.8 Other skin changes; L85.8 Other specified epidermal thickening | CPT/HCPCS: 11721; 70496; 70498; 80048; J3490 ==

== ENCOUNTER 2024-06-04 13:28 | Outpatient (CLI) | payer MEDICARE, SELFPAY ==
--- NOTE | 2024-06-04 13:00 | DI.CT_ITS ---
Exam(s) CT BRAIN NECK CTA EXAM: CT BRAIN NECK CTA CLINICAL HISTORY: vision changes right eye, flashes, H53.9. TECHNIQUE: Imaging Protocol: Axial CT angiography was performed with multi-slice acquisition and mu lti-planar and/or 3D reconstructions. CONTRAST MATERIAL: Intravenous: Omnipaque 350 Contrast volume:structured data in ml COMPARISON: No exams were available for comparison FINDINGS: CTA Neck W: Aortic arch anatomy: The aortic arch anatomy is conventional and there is no significant stenosis at the origin of the great vessels off of the aortic arch. No intimal flap evident. Anterior circulation: Both common carotid arteries ascend with normal luminal diameters. At the level the carotid bulbs and proximal internal carotid arteries there is some calcified and non calcified plaque noted bilaterally. But without hemodynamically significant stenosis. Amount of nilton nosis is estimated at approximately 20 percent bilaterally. Posterior circulation: Both vertebral arteries originate in conventional fashion off of the subclavian arteries and there is no obvious stenosis at the origin of the vertebral arteries. Both vertebral arteries exhibit normal luminal diameters within the foramen transversarium. Left kat[place] tebral artery is dominant. Both vertebral arteries contribute to the formation of the basilar artery at the skull base. CTA Brain W: Anterior circulation: Both internal carotid arteries are patent in the skull base-. Both internal carotid arteries are per ipherally calcified within the bilateral cavernous sinuses but without critical stenosis. Supraclino id aspect of the internal carotid arteries appear patent. The supraclinoid aspects of the ICAs are patent. Both A1 segments are patent as are the anterior cer ebral arteries and there is no evidence of aneurysm at the level of the anterior communicating artery . Both middle cerebral arteries are patent with no evidence of significant stenosis nor intraluminal th rombus. There also no aneurysms of these vessels. Posterior circulation: The basilar artery ascends in the midline. Distally it gives off patent bilateral superior cerebella r arteries. Above this level the basilar artery terminates as patent bilateral posterior cerebral arteries. There is no evidence of aneurysm at the tip of the basilar artery nor elsewhere in the [id number] is. CT BRAIN: There is no evidence of intracranial hemorrhage. There is a large homogeneously enhancing falx based mass in the left frontal lobe region measuring 2.5 cm AP by 1.6 cm wide by 2.4 cm craniocaudal, this having the appearance of a homogeneously enhancing meningioma. There is minimal surrounding brain e izzy. No shift. Ventricular size is [id number]. IMPRESSION: 1. There is some atherosclerotic disease at the level the proximal internal carotid arteries on both sides the neck, estimated at approximately 20 percent stenosis bilaterally. No dissection. 2. Patent vertebral arteries. No significant stenosis. No dissection. 3. Patent intracranial arteries. 4. There is a homogeneously enhancing 2.5 x 1.6 x 2.4 cm centrally located dural-based mass in the le ft frontal lobe region which is most probably a meningioma. There are no ring enhancing lesions in t he brain. No other areas of abnormal meningeal enhancement. 5. Requisition states ???vision changes right eye with flashes???. The above abnormal findings may n ot necessarily be the cause of the symptoms.. Ophthalmology consultation recommended to rule out pos terior vitreal detachment or retinal detachment. Findings called by myself to ER provider 06/04/24 at 4:30 p.m. RADIATION DOSE DELIVERED: Total DLP DATA REPOSITORY: All CT scans at this facility are submitted to the National Radiology Data Registry (NRDR) Dose Index Registry (DIR) with the [employer] (ACR). RADIATION OPTIMIZATION: All CT scans at this facility use at least one of these dose optimization te chniques: automated exposure control; mA and/or kV adjustment per patient size (includes targeted exa ms where dose is matched to clinical indication); or iterative reconstruction.
[2024-06-04 14:59] LABS: Anion Gap 6.7 mmol/L (3-11); BUN 15 mg/dL (7-18); CO2 29.3 mmol/L (21.0-32.0); Calcium 8.9 mg/dL (8.5-10.1); Chloride 106 mmol/L (98-107); Estimated GFR 77.52 (mL/min/1.73m2); Glucose 172 mg/dL (74-106); Potassium 3.8 mmol/L (3.5-5.1); Sodium 142 mmol/L (136-145)
[2024-06-04] MEDS: Normal Saline - Diluent 50 ML VIAL IJ (15:49)
[2024-06-04] MEDS: Omnipaque 350 MG/ML 100 ML BTL 70 ML IJ (15:52)
== END 2024-06-04 13:48 ==
LOC: DI 13:29
PROVIDERS: PCP Nurse Practitioner Family; Visit Provider Physician Assistant
DX: H53.9 Unspecified visual disturbance (principal)
CPT/HCPCS: 70496; 70498; 80048; J3490

== ENCOUNTER 2024-06-24 21:10 | Outpatient (REF) | payer MEDICARE, SELFPAY | END 2024-06-24 21:11 | disposition home or self-care (01) | LOC: NCHCN 21:10 | PROVIDERS: PCP Nurse Practitioner Family; Visit Provider Physician Assistant | DX: N39.0 Urinary tract infection, site not specified (principal) | CPT/HCPCS: 87086 ==

== ENCOUNTER 2024-07-16 03:36 | Outpatient (CLI) | payer MEDICARE, SELFPAY ==
--- NOTE | 2024-07-16 06:41 | DI.MRI_ITS ---
Exam(s) MR BRAIN WO/W EXAM: MR BRAIN WO/W CLINICAL HISTORY: further eval lt frontal lobe mass, G93.89 TECHNIQUE: Multiplanar multisequence MRI of the brain was performed. Both noninfused and contrast i nfused sequences were performed. IV Contrast injected was 20 cc Dotarem. COMPARISON: CT CT BRAIN NECK CTA from 06/04/2024 FINDINGS: 16 x 24 25 CEREBRAL PARENCHYMA: No evidence of intracranial hemorrhage, intra or extra-axial. No extraaxial fluid collections. Ventricles are not enlarged nor shifted. There is no significant focal signal abnormality in the cerebellar hemispheres nor within the will, m idbrain, and thalami. There are few bilateral small foci of periventricular and supra ventricular white matter FLAIR bright signal abnormality consistent with chronic small vessel disease. In addition, there is dural-based extra-axial uniformly enhancing lesion in the left frontal lobe com ing off the left side of the falx cerebri and measuring 2.5 by 1.5 x 2.4 cm, having the appearance of a meningioma. Minimal adjacent mass effect and there is only minimal edema in the surrounding intra -axial brain parenchyma. There are no ring enhancing lesions nor other areas of abnormal meningeal enhancement. However, ther e is an abnormal mass in left side of the pituitary gland measuring 1 0.1 cm wide by 0.8 cm craniocau basil by approximately 1 cm AP and elevating the superior contour of the left side of the pituitary gla nd and deviating the infundibulum towards the right side. Does not appear to invade the left caverno us sinus. DWI: No areas of restricted diffusion to suggest acute ischemic event. SWI: No microhemorrhages evident. PITUITARY GLAND: No mass nor parasellar abnormality. No obvious abnormality in the cavernous sinuses. FLOW VOIDS: The expected flow void are noted. No evidence of obvious aneurysm nor obvious vascular ma lformation. PARANASAL SINUSES: The visualized paranasal sinuses appear unremarkable. ORBITS: No obvious abnormal findings. Previous bilateral cataract surgery. IMPRESSION: 1. Left frontal region uniformly enhancing well-defined meningioma measuring 25 x 15 x 24 mm. 2. Significant mildly expansile lesion in the central-left side of the pituitary gland and extending slightly upwards into this suprasellar cistern with deviation of the pituitary infundibulum to the op posite-right side. If clinically indicated can be further studied with dedicated pituitary gland MRI , mostly to determine if there is involvement of the left cavernous sinus. DATA REPOSITORY:
[2024-07-16] MEDS: Gadoterate meglumine 20 ML SYRINGE IVP (14:59)
[2024-07-16] MEDS: Normal Saline Flush 10 ML SYR IVP (15:00)
== END 2024-07-16 03:56 ==
LOC: DI 03:36
PROVIDERS: PCP Nurse Practitioner Family; Visit Provider Nurse Practitioner Family
DX: G93.89 Other specified disorders of brain (principal)
CPT/HCPCS: 70553

== ENCOUNTER → 2024-08-25 09:59 | Outpatient (BNVA) | payer MEDICARE, SELFPAY | PROVIDERS: PCP Nurse Practitioner Family; Referring Provider Nurse Practitioner Family; Visit Provider Podiatrist | DX: B35.1 Tinea unguium (principal); G62.9 Polyneuropathy, unspecified; I83.93 Asymptomatic varicose veins of bilateral lower extremities; D33.2 Benign neoplasm of brain, unspecified; I73.89 Other specified peripheral vascular diseases; L60.3 Nail dystrophy; L60.2 Onychogryphosis; R09.89 Other specified symptoms and signs involving the circulatory and respiratory systems; R60.0 Localized edema; L65.9 Nonscarring hair loss, unspecified; L60.8 Other nail disorders; R20.8 Other disturbances of skin sensation; M20.41 Other hammer toe(s) (acquired), right foot; M20.42 Other hammer toe(s) (acquired), left foot; M21.612 Bunion of left foot; M21.611 Bunion of right foot | CPT/HCPCS: 11721 ==

== ENCOUNTER 2024-08-29 00:37 | Outpatient (CLI) | payer MEDICARE, SELFPAY ==
[2024-08-29 10:37] LABS: Calculated LDL 106 mg/dL (<100); Cholesterol 187 mg/dL (<200); HDL Cholesterol 68 mg/dL (>or=40); Triglyceride 67 mg/dL (<150)
[2024-08-29 18:18] LABS: PSA, Diagnostic 10.5 ng/mL (<=6.5)
== END 2024-08-29 00:38 | disposition home or self-care (01) ==
LOC: LBO 00:41
PROVIDERS: PCP Nurse Practitioner Family; Visit Provider Urology
DX: R97.20 Elevated prostate specific antigen [PSA] (principal); E78.01 Familial hypercholesterolemia; Z00.00 Encounter for general adult medical examination without abnormal findings; I10 Essential (primary) hypertension; F32.9 Major depressive disorder, single episode, unspecified; F41.9 Anxiety disorder, unspecified
CPT/HCPCS: 36415; 80061; 84153

== ENCOUNTER → 2024-09-11 13:38 | Outpatient (BNVA) | payer MEDICARE, SELFPAY | PROVIDERS: PCP Nurse Practitioner Family; Referring Provider Nurse Practitioner Family; Visit Provider Psychiatry & Neurology Neurology | DX: G25.2 Other specified forms of tremor (principal); R29.2 Abnormal reflex; R41.3 Other amnesia; G95.9 Disease of spinal cord, unspecified; D32.0 Benign neoplasm of cerebral meninges; E23.6 Other disorders of pituitary gland | CPT/HCPCS: 99215 ==

== ENCOUNTER → 2024-09-30 10:23 | Outpatient (BNVA) | payer MEDICARE, SELFPAY | PROVIDERS: PCP Nurse Practitioner Family; Referring Provider Nurse Practitioner Family; Visit Provider Urology | DX: R97.20 Elevated prostate specific antigen [PSA] (principal) | CPT/HCPCS: 99213 ==

== ENCOUNTER 2024-11-03 02:10 | Outpatient (CLI) | payer MEDICARE, SELFPAY ==
[2024-11-03 12:57] LABS: FREE T4 0.93 ng/dL (0.76-1.46); TSH 1.62 uIU/mL (0.36-3.74)
[2024-11-03 19:30] LABS: FSH 15.9 mIU/mL (See Note); LH 5.4 mIU/mL (3.1-34.6); Prolactin 6.7 ng/mL (2.1-17.7)
[2024-11-08 17:38] LABS: Testosterone, Total 440 ng/dL (240-950)
[2024-11-09 19:27] LABS: IGF-1, LC/MS, S 114 ng/mL (34-245); Z-score (Male) 0.3 SD
== END 2024-11-03 02:11 | disposition home or self-care (01) ==
PROVIDERS: PCP Nurse Practitioner Family; Visit Provider Physician Assistant
DX: D35.2 Benign neoplasm of pituitary gland (principal)
CPT/HCPCS: 36415; 82533; 84403; 83001; 83002; 84146; 84305; 84439; 84443

== ENCOUNTER → 2024-11-10 09:56 | Outpatient (BNVA) | payer MEDICARE, SELFPAY | PROVIDERS: PCP Nurse Practitioner Family; Referring Provider Nurse Practitioner Family; Visit Provider Podiatrist | DX: B35.1 Tinea unguium (principal); G62.9 Polyneuropathy, unspecified; I83.93 Asymptomatic varicose veins of bilateral lower extremities; R09.89 Other specified symptoms and signs involving the circulatory and respiratory systems; R60.0 Localized edema; L65.9 Nonscarring hair loss, unspecified; I73.89 Other specified peripheral vascular diseases; L60.8 Other nail disorders; R20.8 Other disturbances of skin sensation; L60.2 Onychogryphosis; L84 Corns and callosities | CPT/HCPCS: 11721 ==

== ENCOUNTER 2025-01-27 00:46 | Outpatient (CLI) | payer MEDICARE, SELFPAY ==
[2025-01-27 20:11] LABS: PSA, Diagnostic 12.1 ng/mL (<=6.5)
== END 2025-01-27 00:47 | disposition home or self-care (01) ==
LOC: LBO 00:46
PROVIDERS: PCP Nurse Practitioner Family; Visit Provider Urology
DX: R97.20 Elevated prostate specific antigen [PSA] (principal)
CPT/HCPCS: 11721; 36415; 84153

== ENCOUNTER → 2025-02-03 10:30 | Outpatient (BNVA) | payer MEDICARE, SELFPAY | PROVIDERS: PCP Nurse Practitioner Family; Referring Provider Nurse Practitioner Family; Visit Provider Urology | DX: R31.29 Other microscopic hematuria (principal); R97.20 Elevated prostate specific antigen [PSA] | CPT/HCPCS: 99214; 81002 ==

== ENCOUNTER 2025-02-26 03:43 | Outpatient (CLI) | payer MEDICARE, SELFPAY ==
--- NOTE | 2025-02-26 08:00 | DI.US_ITS ---
Exam(s) US RENAL EXAM: US RENAL CLINICAL HISTORY: hematuria,r31.29. TECHNIQUE: Trejo scale imaging and color doppler were used. COMPARISON: US US RENAL from 06/13/2019 FINDINGS: Right kidney: 12.3cm Echogenicity: Normal Hydronephrosis: No Cyst or mass: Parapelvic cyst measuring 4.7 x 3.6 x 5.4 cm. Nephrolithiasis: Question of a 3 millimeter stone near the lower pole versus artifact. Left kidney: 12.5cm Echogenicity: Normal Hydronephrosis: No Cyst or mass: No Nephrolithiasis: No Bladder:Not well distended. Unremarkable. No evidence of stone or mass. Prevoid vol:196 cc Postvoid vol:70 cc Enlarged prostate with volume of 54 cc. IMPRESSION: Enlarged prostate impressing on the base of the bladder. Large postvoid residual. Simple appearing cyst of the parapelvic region of the right kidney. Question of 3 millimeter stone versus artifact at the lower pole of the right kidney. DATA REPOSITORY:
== END 2025-02-26 04:03 ==
LOC: DI 03:43
PROVIDERS: PCP Nurse Practitioner Family; Visit Provider Urology
DX: R31.29 Other microscopic hematuria (principal)
CPT/HCPCS: 76770

== ENCOUNTER → 2025-03-03 08:57 | Outpatient (BNVA) | payer MEDICARE, SELFPAY | PROVIDERS: PCP Nurse Practitioner Family; Referring Provider Nurse Practitioner Family; Visit Provider Urology | DX: R31.21 Asymptomatic microscopic hematuria (principal); R97.20 Elevated prostate specific antigen [PSA]; Z87.442 Personal history of urinary calculi | CPT/HCPCS: 99215 ==

== ENCOUNTER → 2025-03-12 09:46 | Outpatient (BNVA) | payer MEDICARE, SELFPAY | PROVIDERS: PCP Nurse Practitioner Family; Referring Provider Nurse Practitioner Family; Visit Provider Psychiatry & Neurology Neurology | DX: G20.A1 Parkinson's disease without dyskinesia, without mention of fluctuations (principal); G25.2 Other specified forms of tremor; R29.2 Abnormal reflex; R41.3 Other amnesia; G95.9 Disease of spinal cord, unspecified; D32.0 Benign neoplasm of cerebral meninges; E23.6 Other disorders of pituitary gland | CPT/HCPCS: 99215 ==

== ENCOUNTER → 2025-04-14 08:27 | Outpatient (BNVA) | payer MEDICARE, SELFPAY | PROVIDERS: PCP Nurse Practitioner Family; Referring Provider Nurse Practitioner Family; Visit Provider Podiatrist | DX: L60.3 Nail dystrophy (principal); B35.1 Tinea unguium; G62.9 Polyneuropathy, unspecified; I83.93 Asymptomatic varicose veins of bilateral lower extremities; R09.89 Other specified symptoms and signs involving the circulatory and respiratory systems; R60.0 Localized edema; L65.9 Nonscarring hair loss, unspecified; L60.8 Other nail disorders; R20.8 Other disturbances of skin sensation; L85.8 Other specified epidermal thickening; R23.4 Changes in skin texture; L60.2 Onychogryphosis; I73.89 Other specified peripheral vascular diseases | CPT/HCPCS: 11721 ==

== ENCOUNTER 2025-04-24 13:17 | Outpatient (CLI) | payer MEDICARE, SELFPAY ==
[2025-04-24 12:55] LABS: Abs Immature Grans 0.04 10^3/uL (0.0-0.06); HCT 42.8 % (40.0-50.0); HGB 14.7 g/dL (13.5-17.5); Immature Grans % 0.4 %; MCH 31.3 pg (27.0-33.0); MCHC 34.3 % (32.0-36.0); MCV 91 fL (80-95); MPV 10.5 fL (8.0-11.0); Platelet Count 208 10^3/uL (130-400); RBC 4.70 10^6/uL (4.36-5.78); RDW 12.3 % (11.8-14.1); RDW-SD 41.1 fL; WBC 11.03 10^3/uL (4.4-10.8)
[2025-04-24 13:43] LABS: ALT 19 U/L (10-49); AST 20 U/L (<34); Albumin 4.3 g/dL (3.2-5.0); Alkaline Phosphatase 47 U/L (46-116); Anion Gap 8.5 mmol/L (3-11); BUN 25 mg/dL (9-23); Bilirubin, Total 0.7 mg/dL (0.2-1.2); CO2 26.5 mmol/L (20.0-31.0); Calcium 10.4 mg/dL (8.3-10.6); Chloride 106 mmol/L (98-107); Glucose 81 mg/dL (74-106); Potassium 4.6 mmol/L (3.5-5.1); Sodium 141 mmol/L (136-145); Total Protein 7.1 g/dL (5.7-8.2)
== END 2025-04-24 13:18 | disposition home or self-care (01) ==
LOC: LBO 13:17
PROVIDERS: PCP Nurse Practitioner Family; Visit Provider Nurse Practitioner Family
DX: R10.9 Unspecified abdominal pain (principal)
CPT/HCPCS: 36415; 80053; 85025